=== PATIENT | male | born 1985 | race Caucasian/White ===

== ENCOUNTER 2016-10-04 01:32 | Emergency (ER) | payer OTHER, SELFPAY ==
--- NOTE | 2016-10-04 02:59 | EDDOCDS ---
Physician Documentation [facility] Name: Duncan Malhotra Age: 31 yrs Sex: Male : 1985 Arrival Date: 10/04/2016 Time: 01:32 Bed I4 / M4 Private MD: Disposition: 10/04/16 02:43 Discharged to Home/Self Care. Impression: Pain in right foot. - Condition is Stable. - Discharge Instructions: Musculoskeletal Pain. - Prescriptions for Naprosyn 500 mg Oral Tablet - take 1 tablet by ORAL route every 12 days As needed take with food; 30 tablet. - Medication Reconciliation, Local Pharmacy Hours form. - Follow up: Emergency Department; When: As needed; Reason: Worsening of conditions. Follow up: [facility]; When: Call to arrange an appointment; Reason: Recheck today's complaints, Continuance of care, To establish care. - Problem is new. - Symptoms are unchanged. - Notes: THERE WAS NO SIGN OF FRACTURE ON YOUR XRAY TODAY. PLEASE FOLLOW UP WITH YOUR PRIMARY CARE PROVIDER IN THE NEXT FEW DAYS TO RECHECK YOUR SYMPTOMS. ANY WORSENING SYMPTOMS, PLEASE RETURN TO THE ER. Historical: - Allergies: ceclor (Hives); - Home Meds: 1. none - PMHx: none; - PSHx: none; - Social history: Smoking status: Patient uses tobacco products, light tobacco smoker. No barriers to communication noted, The patient speaks fluent Romanian, Speaks appropriately for age. - Family history: Not pertinent. - : The pt / caregiver states he / she is not on anticoagulants. Home medication list is obtained from the patient. - Exposure Risk Screening:: None identified. Vital Signs: 10/04 01:43 BP 164 / 106; Pulse 96; Resp 18; Temp 99.8(TE); Pulse Ox 94% on R/A; Weight 108.86 kg / kmg1 240 lbs; Height 5 ft. 9 in. (175.26 cm) (R); Pain 8/10; 02:56 BP 146 / 88; Pulse 98; Resp 18; Temp 99.4(O); Pulse Ox 95% on R/A; Pain 0/10; jmb 01:43 Body Mass Index 35.44 (108.86 kg, 175.26 cm) kmg1 MDM: 02:03 Foot, Complete Ordered. EDMS 02:46 Financial registration complete. [facility] [address] Signatures: Dispatcher [employer] Gay Diaz, RN RN kmg1 Allen Garcia RN RN jmb Jenniffer Gunderson PA-C PA-C dt4 Yola Campos [facility] [address] MTDD
--- NOTE | 2016-10-04 02:59 | EDDOCDS ---
Nurse's Notes [facility] Name: Duncan Malhotra Age: 31 yrs Sex: Male : 1985 Arrival Date: 10/04/2016 Time: 01:32 Bed I4 / M4 Private MD: Diagnosis: Pain in right foot Presentation: 10/04 01:42 Presenting complaint: Patient states: Pain top of right foot for 3 weeks. km Suicide/Homicide risk assessment- the patient denies having any suicidal and/or homicidal ideations and does not present with any other emotional, behavioral or mental health complaints. 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 Transition of care: patient was not received from another setting of care. 01:42 Acuity: KEZIA Level 4 [facility] [place] [place] 01:42 Method Of Arrival: Walkin/Carried/Asstd [facility] [place] [place] 02:58 Adult Sepsis Screening: The patient does not have new or worsening altered mentation. jmb Patient's respiratory rate is less than 22. Systolic blood pressure is greater than 100. Patient has a qSOFA score of 0- Negative Sepsis Screen. Triage Assessment: 01:43 General: Appears in no apparent distress, comfortable, Behavior is appropriate for age, kmg1 cooperative, pleasant. Pain: Location: lateral aspect of right foot and dorsum of right foot Pain currently is 7 out of 10 on a pain scale. Alleviated by nothing. Aggravated by weight bearing. HIV screening NA for this visit Offered previously. Musculoskeletal: Circulation, motion, and sensation intact Capillary refill < 3 seconds Reports pain in lateral side of right foot and dorsum of right foot. Historical: - Allergies: ceclor (Hives); - Home Meds: 1. none - PMHx: none; - PSHx: none; - Social history: Smoking status: Patient uses tobacco products, light tobacco smoker. No barriers to communication noted, The patient speaks fluent [place], Speaks appropriately for age. - Family history: Not pertinent. - : The pt / caregiver states he / she is not on anticoagulants. Home medication list is obtained from the patient. - Exposure Risk Screening:: None identified. Screenin:34 Screening information is obtained from the patient. Fall risk: No risks identified. jmb Assistance ADL's: requires no assistance with activities of daily living. Abuse/DV Screen: The patient / caregiver reports he/she is: in a living situation that causes fear, pain or injury. Nutritional screening: No deficits noted. Advance Directives: Currently, there is no health care proxy. There is no active DNR order. There is no living will. There is no Power of Cigarette Tipper. home support is adequate. Assessment: 02:34 General: Appears in no apparent distress, comfortable, Behavior is appropriate for age, jmb cooperative. Neurological: Level of Consciousness is awake, alert, obeys commands, Oriented to person, place, time, Speech is normal, Facial symmetry appears normal, Facial symmetry: tongue is midline. Cardiovascular: Capillary refill < 3 seconds Heart tones present Pulses are all present. Rhythm is regular. Respiratory: Airway is patent Respiratory effort is even, unlabored, Respiratory pattern is regular, symmetrical, Breath sounds are clear bilaterally. GI: Abdomen is non- distended Bowel sounds present X 4 quads. Abd is soft and non tender X 4 quads. Derm: Skin is pink, warm & dry. Musculoskeletal: Range of motion intact in all extremities. 02:56 General: Patient instructed on discharged instructions. Patient asked if there were any [place] questions regarding discharge, patient stated no. Patient signed discharge instructions. Patient discharged in stable condition. . Vital Signs: 01:43 BP 164 / 106; Pulse 96; Resp 18; Temp 99.8(TE); Pulse Ox 94% on R/A; Weight 108.86 kg; [facility] [place] [place] Height 5 ft. 9 in. (175.26 cm) (R); Pain 8/10; 02:56 BP 146 / 88; Pulse 98; Resp 18; Temp 99.4(O); Pulse Ox 95% on R/A; Pain 0/10; jmb 01:43 Body Mass Index 35.44 (108.86 kg, 175.26 cm) [facility] [place] [place] Vitals: 01:43 Log In Time: October 04, 2016 at 01:34. [facility] [place] [place] ED Course: 01:33 Patient visited by Hazel Mejía, Reg. hs2 01:33 Patient moved to Waiting hs2 01:43 Triage Initiated [facility] [place] [place] 01:50 Patient moved to MTA Wait km 02:05 Patient moved to I4 / M4 jmb 02:08 Patient visited by Jolene Zhu LPN. cp1 02:30 Jenniffer Gunderson PA-C is PHCP. dt4 02:30 Anibal Esteban DO is Attending Physician. dt4 02:30 Patient visited by Jenniffer Gunderson PA-C. dt4 02:34 The patient / caregiver is instructed regarding the plan of care and ED course. jmb 02:34 No IV's were initiated during this patient's visit. No procedures done that require jmb assistance. 02:35 Patient visited by Allen Garcia RN. jmb 02:42 [facility] is Referral Physician. dt4 Order Results: There are currently no results for this order. Outcome: 02:43 Discharge ordered by Provider. dt4 02:56 Discharge Assessment: Patient awake, alert and oriented x 3. No cognitive and/or jmb functional deficits noted. Patient verbalized understanding of disposition instructions. Patient awake and alert. obeys commands, Oriented to person, place and time. Patient verbalized understanding of disposition instructions. Patient has no functional deficits. patient administered narcotics - no. The following High Risk Discharge criteria are identified: None. Discharged to home ambulatory, with significant other. Condition: stable. Discharge instructions given to patient, Instructed on discharge instructions, follow up and referral plans. medication usage, Demonstrated understanding of instructions, medications, Pt was receptive of discharge instructions/ teaching. Prescriptions given X 1. No special radiology studies were completed. Property sent home with patient. 02:58 Patient left the ED. neida Signatures: Gay Ramirez, RN RN kmg1 Jolene Zhu LPN LPN cp1 Allen Garcia RN RN jmb Tschudi, Diane, PA-C PA-C dt4 Hazel Mejía, Reg Reg hs2 MTDD
--- NOTE | 2016-10-04 11:14 | REP ---
Right foot series: Four views. History: Right foot pain. No known injury. Findings: There is flattening, irregularity and some sclerosis in the distal end of the 3rd metatarsal consistent with Freiberg infraction. Overall mineralization pattern is normal. There is an accessory navicular ossicle. No other abnormality. 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 Os naviculare noted incidentally. Signed by Juan Daniel García MD 10/04/2016 01:13 P
--- NOTE | 2016-10-06 03:59 | EDDOCDS ---
Physician Documentation [facility] Name: Duncan Malhotra Age: 31 yrs Sex: Male : 1985 Arrival Date: 10/04/2016 Time: 01:32 Bed I4 / M4 Private MD: Disposition: 10/04/16 02:43 Discharged to Home/Self Care. Impression: Pain in right foot. - Condition is Stable. - Discharge Instructions: Musculoskeletal Pain. - Prescriptions for Naprosyn 500 mg Oral Tablet - take 1 tablet by ORAL route every 12 days As needed take with food; 30 tablet. - Medication Reconciliation, Local Pharmacy Hours form. - Follow up: Emergency Department; When: As needed; Reason: Worsening of conditions. Follow up: [facility]; When: Call to arrange an appointment; Reason: Recheck today's complaints, Continuance of care, To establish care. - Problem is new. - Symptoms are unchanged. - Notes: THERE WAS NO SIGN OF FRACTURE ON YOUR XRAY TODAY. PLEASE FOLLOW UP WITH YOUR PRIMARY CARE PROVIDER IN THE NEXT FEW DAYS TO RECHECK YOUR SYMPTOMS. ANY WORSENING SYMPTOMS, PLEASE RETURN TO THE ER. Historical: - Allergies: ceclor (Hives); - Home Meds: 1. none - PMHx: none; - PSHx: none; - Social history: Smoking status: Patient uses tobacco products, light tobacco smoker. No barriers to communication noted, The patient speaks fluent Malagasy, Speaks appropriately for age. - Family history: Not pertinent. - : The pt / caregiver states he / she is not on anticoagulants. Home medication list is obtained from the patient. - Exposure Risk Screening:: None identified. Vital Signs: 10/04 01:43 BP 164 / 106; Pulse 96; Resp 18; Temp 99.8(TE); Pulse Ox 94% on R/A; Weight 108.86 kg / kmg1 240 lbs; Height 5 ft. 9 in. (175.26 cm) (R); Pain 8/10; 02:56 BP 146 / 88; Pulse 98; Resp 18; Temp 99.4(O); Pulse Ox 95% on R/A; Pain 0/10; jmb 01:43 Body Mass Index 35.44 (108.86 kg, 175.26 cm) kmg1 MDM: 02:03 Foot, Complete Ordered. EDMS 02:46 Financial registration complete. [facility] 04:10 [facility] Payment Agreement was scanned into [employer] and attached to record. [facility] 14:21 T-Sheet-- Draft Copy was scanned into [employer] and attached to record. gb Signatures: Dispatcher [employer] EDMS Gay Ramirez, RN RN kmg1 Nora Nicolas, Reg Reg gb Allen Garcia RN RN jmb Tschudi, Diane, TIGRE PAYola Cotton [facility] The chart was reviewed and I authenticate all verbal orders and agree with the evaluation and treatment provided.Attachments: 04:10 [facility] Payment Agreement [facility] 14:21 T-Sheet-- Draft Copy gb Chart Complete MTDD
--- NOTE | 2016-10-06 03:59 | EDDOCDS ---
Nurse's Notes [facility] Name: Duncan Malhotra Age: 31 yrs Sex: Male : 1985 Arrival Date: 10/04/2016 Time: 01:32 Bed I4 / M4 Private MD: Diagnosis: Pain in right foot Presentation: 10/04 01:42 Presenting complaint: Patient states: Pain top of right foot for 3 weeks. km Suicide/Homicide risk assessment- the patient denies having any suicidal and/or homicidal ideations and does not present with any other emotional, behavioral or mental health complaints. 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 Transition of care: patient was not received from another setting of care. 01:42 Acuity: KEZIA Level 4 [facility] [place] 01:42 Method Of Arrival: Walkin/Carried/Asstd [facility] [place] 02:58 Adult Sepsis Screening: The patient does not have new or worsening altered mentation. jmb Patient's respiratory rate is less than 22. Systolic blood pressure is greater than 100. Patient has a qSOFA score of 0- Negative Sepsis Screen. Triage Assessment: 01:43 General: Appears in no apparent distress, comfortable, Behavior is appropriate for age, kmg1 cooperative, pleasant. Pain: Location: lateral aspect of right foot and dorsum of right foot Pain currently is 7 out of 10 on a pain scale. Alleviated by nothing. Aggravated by weight bearing. HIV screening NA for this visit Offered previously. Musculoskeletal: Circulation, motion, and sensation intact Capillary refill < 3 seconds Reports pain in lateral side of right foot and dorsum of right foot. Historical: - Allergies: ceclor (Hives); - Home Meds: 1. none - PMHx: none; - PSHx: none; - Social history: Smoking status: Patient uses tobacco products, light tobacco smoker. No barriers to communication noted, The patient speaks fluent Estonian, Speaks appropriately for age. - Family history: Not pertinent. - : The pt / caregiver states he / she is not on anticoagulants. Home medication list is obtained from the patient. - Exposure Risk Screening:: None identified. Screenin:34 Screening information is obtained from the patient. Fall risk: No risks identified. jmb Assistance ADL's: requires no assistance with activities of daily living. Abuse/DV Screen: The patient / caregiver reports he/she is: in a living situation that causes fear, pain or injury. Nutritional screening: No deficits noted. Advance Directives: Currently, there is no health care proxy. There is no active DNR order. There is no living will. There is no Power of Casualty Insurance Claim Adjuster. home support is adequate. Assessment: 02:34 General: Appears in no apparent distress, comfortable, Behavior is appropriate for age, jmb cooperative. Neurological: Level of Consciousness is awake, alert, obeys commands, Oriented to person, place, time, Speech is normal, Facial symmetry appears normal, Facial symmetry: tongue is midline. Cardiovascular: Capillary refill < 3 seconds Heart tones present Pulses are all present. Rhythm is regular. Respiratory: Airway is patent Respiratory effort is even, unlabored, Respiratory pattern is regular, symmetrical, Breath sounds are clear bilaterally. GI: Abdomen is non- distended Bowel sounds present X 4 quads. Abd is soft and non tender X 4 quads. Derm: Skin is pink, warm & dry. Musculoskeletal: Range of motion intact in all extremities. 02:56 General: Patient instructed on discharged instructions. Patient asked if there were any [facility] questions regarding discharge, patient stated no. Patient signed discharge instructions. Patient discharged in stable condition. . Vital Signs: 01:43 BP 164 / 106; Pulse 96; Resp 18; Temp 99.8(TE); Pulse Ox 94% on R/A; Weight 108.86 kg; [facility] [place] Height 5 ft. 9 in. (175.26 cm) (R); Pain 8/10; 02:56 BP 146 / 88; Pulse 98; Resp 18; Temp 99.4(O); Pulse Ox 95% on R/A; Pain 0/10; jmb 01:43 Body Mass Index 35.44 (108.86 kg, 175.26 cm) [facility] [place] Vitals: 01:43 Log In Time: October 04, 2016 at 01:34. [facility] [place] ED Course: 01:33 Patient visited by Hazel Mejía, Reg. hs2 01:33 Patient moved to Waiting hs2 01:43 Triage Initiated [facility] [place] 01:50 Patient moved to MTA Wait km 02:05 Patient moved to I4 / M4 jmb 02:08 Patient visited by Jolene Zhu LPN. cp1 02:30 Jenniffer Gunderson PA-C is PHCP. dt4 02:30 Anibal Esteban DO is Attending Physician. dt4 02:30 Patient visited by Jenniffer Gunderson PA-C. dt4 02:34 The patient / caregiver is instructed regarding the plan of care and ED course. jmb 02:34 No IV's were initiated during this patient's visit. No procedures done that require jmb assistance. 02:35 Patient visited by Allen Garcia RN. jmb 02:42 [facility] is Referral Physician. dt4 04:10 [facility] Payment Agreement was scanned into [employer] and attached to record. [facility] 11:34 Foot, Complete Returned. [facility] 14:21 T-Sheet-- Draft Copy was scanned into [employer] and attached to record. gb Order Results: Radiology Order: Foot, Complete Test: Foot, Complete REASON FOR EXAMINATION: right foot pain, no known injury; Right foot series: Four views.; ; History: Right foot pain. No known injury.; ; Findings: There is flattening, irregularity and some sclerosis in the distal end; of the 3rd metatarsal consistent with Freiberg infraction. Overall; mineralization pattern is normal. There is an accessory navicular ossicle. No; other abnormality.; ; Impression:; ; Findings consistent with Freiberg infraction affecting the distal end of the 3rd; metatarsal. Os naviculare noted incidentally.; ; ; Signed by; Juan Daniel García MD 10/04/2016 01:13 P; Outcome: 02:43 Discharge ordered by Provider. dt4 02:56 Discharge Assessment: Patient awake, alert and oriented x 3. No cognitive and/or jmb functional deficits noted. Patient verbalized understanding of disposition instructions. Patient awake and alert. obeys commands, Oriented to person, place and time. Patient verbalized understanding of disposition instructions. Patient has no functional deficits. patient administered narcotics - no. The following High Risk Discharge criteria are identified: None. Discharged to home ambulatory, with significant other. Condition: stable. Discharge instructions given to patient, Instructed on discharge instructions, follow up and referral plans. medication usage, Demonstrated understanding of instructions, medications, Pt was receptive of discharge instructions/ teaching. Prescriptions given X 1. No special radiology studies were completed. Property sent home with patient. 02:58 Patient left the ED. sumanthb Signatures: Dispatcher [facility] Gay Ramirez RN RN km Nora Nicolas, Reg Reg gb Marko,Jolene,ELECTRONICS PARTS SALES REPRESENTATIVE ELECTRONICS PARTS SALES REPRESENTATIVE cp1 Allen Garcia,RN RN jmb Jenniffer Gunderson, TIGRE PASj dt4 Yola Campos Hillary, Reg Reg hs2 Chart Complete MTDD
--- NOTE | 2016-10-06 03:59 | EDDOCDS ---
Physician Documentation [facility] Name: Duncan Malhotra Age: 31 yrs Sex: Male : 1985 Arrival Date: 10/04/2016 Time: 01:32 Bed I4 / M4 Private MD: Disposition: 10/04/16 02:43 Discharged to Home/Self Care. Impression: Pain in right foot. - Condition is Stable. - Discharge Instructions: Musculoskeletal Pain. - Prescriptions for Naprosyn 500 mg Oral Tablet - take 1 tablet by ORAL route every 12 days As needed take with food; 30 tablet. - Medication Reconciliation, Local Pharmacy Hours form. - Follow up: Emergency Department; When: As needed; Reason: Worsening of conditions. Follow up: [facility]; When: Call to arrange an appointment; Reason: Recheck today's complaints, Continuance of care, To establish care. - Problem is new. - Symptoms are unchanged. - Notes: THERE WAS NO SIGN OF FRACTURE ON YOUR XRAY TODAY. PLEASE FOLLOW UP WITH YOUR PRIMARY CARE PROVIDER IN THE NEXT FEW DAYS TO RECHECK YOUR SYMPTOMS. ANY WORSENING SYMPTOMS, PLEASE RETURN TO THE ER. Historical: - Allergies: ceclor (Hives); - Home Meds: 1. none - PMHx: none; - PSHx: none; - Social history: Smoking status: Patient uses tobacco products, light tobacco smoker. No barriers to communication noted, The patient speaks fluent Mosotho, Speaks appropriately for age. - Family history: Not pertinent. - : The pt / caregiver states he / she is not on anticoagulants. Home medication list is obtained from the patient. - Exposure Risk Screening:: None identified. Vital Signs: 10/04 01:43 BP 164 / 106; Pulse 96; Resp 18; Temp 99.8(TE); Pulse Ox 94% on R/A; Weight 108.86 kg / kmg1 240 lbs; Height 5 ft. 9 in. (175.26 cm) (R); Pain 8/10; 02:56 BP 146 / 88; Pulse 98; Resp 18; Temp 99.4(O); Pulse Ox 95% on R/A; Pain 0/10; jmb 01:43 Body Mass Index 35.44 (108.86 kg, 175.26 cm) kmg1 MDM: 02:03 Foot, Complete Ordered. EDMS 02:46 Financial registration complete. [facility] 04:10 [facility] Payment Agreement was scanned into [employer] and attached to record. [facility] 14:21 T-Sheet-- Draft Copy was scanned into [employer] and attached to record. gb Signatures: Dispatcher [employer] EDMS Gay Ramirez, RN RN kmg1 Nora Nicolas, Reg Reg gb Allen Garcia RN RN jmb Tschudi, Diane, TIGRE PAYoal Cotton [facility] The chart was reviewed and I authenticate all verbal orders and agree with the evaluation and treatment provided.Attachments: 04:10 [facility] Payment Agreement [facility] 14:21 T-Sheet-- Draft Copy gb Chart Complete MTDD
--- NOTE | 2016-10-07 20:32 | EDDOCDS ---
Physician Documentation [facility] Name: Duncan Malhotra Age: 31 yrs Sex: Male : 1985 Arrival Date: 10/04/2016 Time: 01:32 Bed I4 / M4 Private MD: Disposition: 10/04/16 02:43 Discharged to Home/Self Care. Impression: Pain in right foot. - Condition is Stable. - Discharge Instructions: Musculoskeletal Pain. - Prescriptions for Naprosyn 500 mg Oral Tablet - take 1 tablet by ORAL route every 12 days As needed take with food; 30 tablet. - Medication Reconciliation, Local Pharmacy Hours form. - Follow up: Emergency Department; When: As needed; Reason: Worsening of conditions. Follow up: [facility]; When: Call to arrange an appointment; Reason: Recheck today's complaints, Continuance of care, To establish care. - Problem is new. - Symptoms are unchanged. - Notes: THERE WAS NO SIGN OF FRACTURE ON YOUR XRAY TODAY. PLEASE FOLLOW UP WITH YOUR PRIMARY CARE PROVIDER IN THE NEXT FEW DAYS TO RECHECK YOUR SYMPTOMS. ANY WORSENING SYMPTOMS, PLEASE RETURN TO THE ER. Historical: - Allergies: ceclor (Hives); - Home Meds: 1. none - PMHx: none; - PSHx: none; - Social history: Smoking status: Patient uses tobacco products, light tobacco smoker. No barriers to communication noted, The patient speaks fluent Chilean, Speaks appropriately for age. - Family history: Not pertinent. - : The pt / caregiver states he / she is not on anticoagulants. Home medication list is obtained from the patient. - Exposure Risk Screening:: None identified. Vital Signs: 10/04 01:43 BP 164 / 106; Pulse 96; Resp 18; Temp 99.8(TE); Pulse Ox 94% on R/A; Weight 108.86 kg / kmg1 240 lbs; Height 5 ft. 9 in. (175.26 cm) (R); Pain 8/10; 02:56 BP 146 / 88; Pulse 98; Resp 18; Temp 99.4(O); Pulse Ox 95% on R/A; Pain 0/10; jmb 01:43 Body Mass Index 35.44 (108.86 kg, 175.26 cm) kmg1 MDM: 02:03 Foot, Complete Ordered. EDMS 02:46 Financial registration complete. [facility] 04:10 [facility] Payment Agreement was scanned into [employer] and attached to record. [facility] 14:21 T-Sheet-- Draft Copy was scanned into [employer] and attached to record. chandni Addendum: 10/07/2016 20:28 Radiology Callback: Radiology results faxed to primary care physician/provider. [facility] faxed formal report of right foot film for fu mlg. Signatures: Dispatcher [facility] Tatyana Millan MD MD ml Gay Ramirez, RN RN kmg1 Nora Nicolas, Reg Reg gb Allen GarciaRN RN Jenniffer Sanabria PA-C PAYola Cotton [facility] The chart was reviewed and I authenticate all verbal orders and agree with the evaluation and treatment provided.Attachments: 10/04 04:10 [facility] Payment Agreement [facility] 14:21 T-Sheet-- Draft Copy MTDD
--- NOTE | 2016-10-07 20:32 | EDDOCDS ---
Nurse's Notes [facility] Name: Duncan Malhotra Age: 31 yrs Sex: Male : 1985 Arrival Date: 10/04/2016 Time: 01:32 Bed I4 / M4 Private MD: Diagnosis: Pain in right foot Presentation: 10/04 01:42 Presenting complaint: Patient states: Pain top of right foot for 3 weeks. km Suicide/Homicide risk assessment- the patient denies having any suicidal and/or homicidal ideations and does not present with any other emotional, behavioral or mental health complaints. 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 Transition of care: patient was not received from another setting of care. 01:42 Acuity: KEZIA Level [address] [facility] 01:42 Method Of Arrival: Walkin/Carried/Asstd [facility] 02:58 Adult Sepsis Screening: The patient does not have new or worsening altered mentation. jmb Patient's respiratory rate is less than 22. Systolic blood pressure is greater than 100. Patient has a qSOFA score of 0- Negative Sepsis Screen. Triage Assessment: 01:43 General: Appears in no apparent distress, comfortable, Behavior is appropriate for age, kmg1 cooperative, pleasant. Pain: Location: lateral aspect of right foot and dorsum of right foot Pain currently is 7 out of 10 on a pain scale. Alleviated by nothing. Aggravated by weight bearing. HIV screening NA for this visit Offered previously. Musculoskeletal: Circulation, motion, and sensation intact Capillary refill < 3 seconds Reports pain in lateral side of right foot and dorsum of right foot. Historical: - Allergies: ceclor (Hives); - Home Meds: 1. none - PMHx: none; - PSHx: none; - Social history: Smoking status: Patient uses tobacco products, light tobacco smoker. No barriers to communication noted, The patient speaks fluent Syrian, Speaks appropriately for age. - Family history: Not pertinent. - : The pt / caregiver states he / she is not on anticoagulants. Home medication list is obtained from the patient. - Exposure Risk Screening:: None identified. Screenin:34 Screening information is obtained from the patient. Fall risk: No risks identified. jmb Assistance ADL's: requires no assistance with activities of daily living. Abuse/DV Screen: The patient / caregiver reports he/she is: in a living situation that causes fear, pain or injury. Nutritional screening: No deficits noted. Advance Directives: Currently, there is no health care proxy. There is no active DNR order. There is no living will. There is no Power of Superintendent [employer]. home support is adequate. Assessment: 02:34 General: Appears in no apparent distress, comfortable, Behavior is appropriate for age, jmb cooperative. Neurological: Level of Consciousness is awake, alert, obeys commands, Oriented to person, place, time, Speech is normal, Facial symmetry appears normal, Facial symmetry: tongue is midline. Cardiovascular: Capillary refill < 3 seconds Heart tones present Pulses are all present. Rhythm is regular. Respiratory: Airway is patent Respiratory effort is even, unlabored, Respiratory pattern is regular, symmetrical, Breath sounds are clear bilaterally. GI: Abdomen is non- distended Bowel sounds present X 4 quads. Abd is soft and non tender X 4 quads. Derm: Skin is pink, warm & dry. Musculoskeletal: Range of motion intact in all extremities. 02:56 General: Patient instructed on discharged instructions. Patient asked if there were any [facility] questions regarding discharge, patient stated no. Patient signed discharge instructions. Patient discharged in stable condition. . Vital Signs: 01:43 BP 164 / 106; Pulse 96; Resp 18; Temp 99.8(TE); Pulse Ox 94% on R/A; Weight 108.86 kg; [facility] Height 5 ft. 9 in. (175.26 cm) (R); Pain 8/10; 02:56 BP 146 / 88; Pulse 98; Resp 18; Temp 99.4(O); Pulse Ox 95% on R/A; Pain 0/10; jmb 01:43 Body Mass Index 35.44 (108.86 kg, 175.26 cm) [facility] Vitals: 01:43 Log In Time: October 04, 2016 at 01:[address]. [facility] ED Course: 01:33 Patient visited by Hazel Mejía, Reg. hs2 01:33 Patient moved to Waiting hs2 01:[address] [facility] 01:50 Patient moved to MTA Wait km 02:05 Patient moved to I4 / M4 jmb 02:08 Patient visited by Jolene Zhu LPN. cp1 02:30 Jenniffer Gunderson PA-C is PHCP. dt4 02:30 Anibal Esteban DO is Attending Physician. dt4 02:30 Patient visited by Jenniffer Gunderson PA-C. dt4 02:34 The patient / caregiver is instructed regarding the plan of care and ED course. jmb 02:34 No IV's were initiated during this patient's visit. No procedures done that require jmb assistance. 02:35 Patient visited by Allen Garcia RN. jmb 02:42 [facility] is Referral Physician. dt4 04:10 [facility] Payment Agreement was scanned into [employer] and attached to record. [facility] 11:34 Foot, Complete Returned. [facility] 14:21 T-Sheet-- Draft Copy was scanned into [employer] and attached to record. gb Order Results: Radiology Order: Foot, Complete Test: Foot, Complete REASON FOR EXAMINATION: right foot pain, no known injury; Right foot series: Four views.; ; History: Right foot pain. No known injury.; ; Findings: There is flattening, irregularity and some sclerosis in the distal end; of the 3rd metatarsal consistent with Freiberg infraction. Overall; mineralization pattern is normal. There is an accessory navicular ossicle. No; other abnormality.; ; Impression:; ; Findings consistent with Freiberg infraction affecting the distal end of the 3rd; metatarsal. Os naviculare noted incidentally.; ; ; Signed by; Juan Daniel García MD 10/04/2016 01:13 P; Outcome: 02:43 Discharge ordered by Provider. dt4 02:56 Discharge Assessment: Patient awake, alert and oriented x 3. No cognitive and/or jmb functional deficits noted. Patient verbalized understanding of disposition instructions. Patient awake and alert. obeys commands, Oriented to person, place and time. Patient verbalized understanding of disposition instructions. Patient has no functional deficits. patient administered narcotics - no. The following High Risk Discharge criteria are identified: None. Discharged to home ambulatory, with significant other. Condition: stable. Discharge instructions given to patient, Instructed on discharge instructions, follow up and referral plans. medication usage, Demonstrated understanding of instructions, medications, Pt was receptive of discharge instructions/ teaching. Prescriptions given X 1. No special radiology studies were completed. Property sent home with patient. 02:58 Patient left the ED. sumanthb Signatures: Dispatcher [facility] Gay Ramirez RN RN km Nora Nicolas, Reg Reg gb Marko,Jolene,EXPLOSIVE OPERATOR FUSE EXPLOSIVE OPERATOR FUSE cp1 Allen Garcia,RN RN sumanthb Jenniffer Gunderson, TIGRE PASj dt4 Yola Campos Hillary, Reg Reg hs2 MTDD
--- NOTE | 2016-10-07 20:32 | EDDOCDS ---
Physician Documentation [facility] Name: Duncan Malhotra Age: 31 yrs Sex: Male : 1985 Arrival Date: 10/04/2016 Time: 01:32 Bed I4 / M4 Private MD: Disposition: 10/04/16 02:43 Discharged to Home/Self Care. Impression: Pain in right foot. - Condition is Stable. - Discharge Instructions: Musculoskeletal Pain. - Prescriptions for Naprosyn 500 mg Oral Tablet - take 1 tablet by ORAL route every 12 days As needed take with food; 30 tablet. - Medication Reconciliation, Local Pharmacy Hours form. - Follow up: Emergency Department; When: As needed; Reason: Worsening of conditions. Follow up: [facility]; When: Call to arrange an appointment; Reason: Recheck today's complaints, Continuance of care, To establish care. - Problem is new. - Symptoms are unchanged. - Notes: THERE WAS NO SIGN OF FRACTURE ON YOUR XRAY TODAY. PLEASE FOLLOW UP WITH YOUR PRIMARY CARE PROVIDER IN THE NEXT FEW DAYS TO RECHECK YOUR SYMPTOMS. ANY WORSENING SYMPTOMS, PLEASE RETURN TO THE ER. Historical: - Allergies: ceclor (Hives); - Home Meds: 1. none - PMHx: none; - PSHx: none; - Social history: Smoking status: Patient uses tobacco products, light tobacco smoker. No barriers to communication noted, The patient speaks fluent Malaysian, Speaks appropriately for age. - Family history: Not pertinent. - : The pt / caregiver states he / she is not on anticoagulants. Home medication list is obtained from the patient. - Exposure Risk Screening:: None identified. Vital Signs: 10/04 01:43 BP 164 / 106; Pulse 96; Resp 18; Temp 99.8(TE); Pulse Ox 94% on R/A; Weight 108.86 kg / kmg1 240 lbs; Height 5 ft. 9 in. (175.26 cm) (R); Pain 8/10; 02:56 BP 146 / 88; Pulse 98; Resp 18; Temp 99.4(O); Pulse Ox 95% on R/A; Pain 0/10; jmb 01:43 Body Mass Index 35.44 (108.86 kg, 175.26 cm) kmg1 MDM: 02:03 Foot, Complete Ordered. EDMS 02:46 Financial registration complete. [facility] 04:10 [facility] Payment Agreement was scanned into [employer] and attached to record. [facility] 14:21 T-Sheet-- Draft Copy was scanned into [employer] and attached to record. chandni Addendum: 10/07/2016 20:28 Radiology Callback: Radiology results faxed to primary care physician/provider. [facility] faxed formal report of right foot film for fu mlg. Signatures: Dispatcher [facility] ED[facility] Tatyana Millan MD MD ml Gay Ramirez, RN RN kmg1 Nora Nicolas, Reg Reg gb Allen GarciaRN RN Jenniffer Sanabria PA-C PAYola Cotton [facility] The chart was reviewed and I authenticate all verbal orders and agree with the evaluation and treatment provided.Attachments: 10/04 04:10 [facility] Payment Agreement [facility] 14:21 T-Sheet-- Draft Copy MTDD
--- NOTE | 2016-10-07 20:33 | EDDOCDS ---
Nurse's Notes [facility] Name: Duncan Malhotra Age: 31 yrs Sex: Male : 1985 Arrival Date: 10/04/2016 Time: 01:32 Bed I4 / M4 Private MD: Diagnosis: Pain in right foot Presentation: 10/04 01:42 Presenting complaint: Patient states: Pain top of right foot for 3 weeks. km Suicide/Homicide risk assessment- the patient denies having any suicidal and/or homicidal ideations and does not present with any other emotional, behavioral or mental health complaints. Status: Patient is not a client services account manager or dependent. Transition of care: patient was not received from another setting of care. 01:42 Acuity: KEZIA Level 4 [facility] 01:42 Method Of Arrival: Walkin/Carried/Asstd [facility] 02:58 Adult Sepsis Screening: The patient does not have new or worsening altered mentation. jmb Patient's respiratory rate is less than 22. Systolic blood pressure is greater than 100. Patient has a qSOFA score of 0- Negative Sepsis Screen. Triage Assessment: 01:43 General: Appears in no apparent distress, comfortable, Behavior is appropriate for age, kmg1 cooperative, pleasant. Pain: Location: lateral aspect of right foot and dorsum of right foot Pain currently is 7 out of 10 on a pain scale. Alleviated by nothing. Aggravated by weight bearing. HIV screening NA for this visit Offered previously. Musculoskeletal: Circulation, motion, and sensation intact Capillary refill < 3 seconds Reports pain in lateral side of right foot and dorsum of right foot. Historical: - Allergies: ceclor (Hives); - Home Meds: 1. none - PMHx: none; - PSHx: none; - Social history: Smoking status: Patient uses tobacco products, light tobacco smoker. No barriers to communication noted, The patient speaks fluent Central African, Speaks appropriately for age. - Family history: Not pertinent. - : The pt / caregiver states he / she is not on anticoagulants. Home medication list is obtained from the patient. - Exposure Risk Screening:: None identified. Screenin:34 Screening information is obtained from the patient. Fall risk: No risks identified. jmb Assistance ADL's: requires no assistance with activities of daily living. Abuse/DV Screen: The patient / caregiver reports he/she is: in a living situation that causes fear, pain or injury. Nutritional screening: No deficits noted. Advance Directives: Currently, there is no health care proxy. There is no active DNR order. There is no living will. There is no Power of Registered Respiratory Technician. home support is adequate. Assessment: 02:34 General: Appears in no apparent distress, comfortable, Behavior is appropriate for age, jmb cooperative. Neurological: Level of Consciousness is awake, alert, obeys commands, Oriented to person, place, time, Speech is normal, Facial symmetry appears normal, Facial symmetry: tongue is midline. Cardiovascular: Capillary refill < 3 seconds Heart tones present Pulses are all present. Rhythm is regular. Respiratory: Airway is patent Respiratory effort is even, unlabored, Respiratory pattern is regular, symmetrical, Breath sounds are clear bilaterally. GI: Abdomen is non- distended Bowel sounds present X 4 quads. Abd is soft and non tender X 4 quads. Derm: Skin is pink, warm & dry. Musculoskeletal: Range of motion intact in all extremities. 02:56 General: Patient instructed on discharged instructions. Patient asked if there were any [facility] questions regarding discharge, patient stated no. Patient signed discharge instructions. Patient discharged in stable condition. . Vital Signs: 01:43 BP 164 / 106; Pulse 96; Resp 18; Temp 99.8(TE); Pulse Ox 94% on R/A; Weight 108.86 kg; [facility] Height 5 ft. 9 in. (175.26 cm) (R); Pain 8/10; 02:56 BP 146 / 88; Pulse 98; Resp 18; Temp 99.4(O); Pulse Ox 95% on R/A; Pain 0/10; jmb 01:43 Body Mass Index 35.44 (108.86 kg, 175.26 cm) [facility] Vitals: 01:43 Log In Time: October 04, 2016 at 01:34. [facility] ED Course: 01:33 Patient visited by Hazel Mejía, Reg. hs2 01:33 Patient moved to Waiting hs2 01:43 Triage Initiated [facility] 01:50 Patient moved to MTA Wait km 02:05 Patient moved to I4 / M4 jmb 02:08 Patient visited by Jolene Zhu LPN. cp1 02:30 Jenniffer Gunderson PA-C is PHCP. dt4 02:30 Anibal Esteban DO is Attending Physician. dt4 02:30 Patient visited by Jenniffer Gunderson PA-C. dt4 02:34 The patient / caregiver is instructed regarding the plan of care and ED course. jmb 02:34 No IV's were initiated during this patient's visit. No procedures done that require jmb assistance. 02:35 Patient visited by Allen Garcia RN. jmb 02:42 [facility] is Referral Physician. dt4 04:10 [facility] Payment Agreement was scanned into [employer] and attached to record. [facility] 11:34 Foot, Complete Returned. [facility] 14:21 T-Sheet-- Draft Copy was scanned into [employer] and attached to record. gb Order Results: Radiology Order: Foot, Complete Test: Foot, Complete REASON FOR EXAMINATION: right foot pain, no known injury; Right foot series: Four views.; ; History: Right foot pain. No known injury.; ; Findings: There is flattening, irregularity and some sclerosis in the distal end; of the 3rd metatarsal consistent with Freiberg infraction. Overall; mineralization pattern is normal. There is an accessory navicular ossicle. No; other abnormality.; ; Impression:; ; Findings consistent with Freiberg infraction affecting the distal end of the 3rd; metatarsal. Os naviculare noted incidentally.; ; ; Signed by; Juan Daniel García MD 10/04/2016 01:13 P; Outcome: 02:43 Discharge ordered by Provider. dt4 02:56 Discharge Assessment: Patient awake, alert and oriented x 3. No cognitive and/or jmb functional deficits noted. Patient verbalized understanding of disposition instructions. Patient awake and alert. obeys commands, Oriented to person, place and time. Patient verbalized understanding of disposition instructions. Patient has no functional deficits. patient administered narcotics - no. The following High Risk Discharge criteria are identified: None. Discharged to home ambulatory, with significant other. Condition: stable. Discharge instructions given to patient, Instructed on discharge instructions, follow up and referral plans. medication usage, Demonstrated understanding of instructions, medications, Pt was receptive of discharge instructions/ teaching. Prescriptions given X 1. No special radiology studies were completed. Property sent home with patient. 02:58 Patient left the ED. sumanthb Signatures: Dispatcher [facility] Gay Ramirez RN RN km Nora Nicolas, Reg Reg gb Marko,Jolene,QUARTER INSPECTOR QUARTER INSPECTOR cp1 Allen Garcia,RN RN jmb Jenniffer Gunderson, TIGRE PASj dt4 Yola Campos Hillary, Reg Reg hs2 Chart Complete MTDD
--- NOTE | 2016-10-07 20:33 | EDDOCDS ---
Physician Documentation [facility] Name: Duncan Malhotra Age: 31 yrs Sex: Male : 1985 Arrival Date: 10/04/2016 Time: 01:32 Bed I4 / M4 Private MD: Disposition: 10/04/16 02:43 Discharged to Home/Self Care. Impression: Pain in right foot. - Condition is Stable. - Discharge Instructions: Musculoskeletal Pain. - Prescriptions for Naprosyn 500 mg Oral Tablet - take 1 tablet by ORAL route every 12 days As needed take with food; 30 tablet. - Medication Reconciliation, Local Pharmacy Hours form. - Follow up: Emergency Department; When: As needed; Reason: Worsening of conditions. Follow up: [facility]; When: Call to arrange an appointment; Reason: Recheck today's complaints, Continuance of care, To establish care. - Problem is new. - Symptoms are unchanged. - Notes: THERE WAS NO SIGN OF FRACTURE ON YOUR XRAY TODAY. PLEASE FOLLOW UP WITH YOUR PRIMARY CARE PROVIDER IN THE NEXT FEW DAYS TO RECHECK YOUR SYMPTOMS. ANY WORSENING SYMPTOMS, PLEASE RETURN TO THE ER. Historical: - Allergies: ceclor (Hives); - Home Meds: 1. none - PMHx: none; - PSHx: none; - Social history: Smoking status: Patient uses tobacco products, light tobacco smoker. No barriers to communication noted, The patient speaks fluent Iranian, Speaks appropriately for age. - Family history: Not pertinent. - : The pt / caregiver states he / she is not on anticoagulants. Home medication list is obtained from the patient. - Exposure Risk Screening:: None identified. Vital Signs: 10/04 01:43 BP 164 / 106; Pulse 96; Resp 18; Temp 99.8(TE); Pulse Ox 94% on R/A; Weight 108.86 kg / kmg1 240 lbs; Height 5 ft. 9 in. (175.26 cm) (R); Pain 8/10; 02:56 BP 146 / 88; Pulse 98; Resp 18; Temp 99.4(O); Pulse Ox 95% on R/A; Pain 0/10; jmb 01:43 Body Mass Index 35.44 (108.86 kg, 175.26 cm) kmg1 MDM: 02:03 Foot, Complete Ordered. EDMS 02:46 Financial registration complete. [facility] 04:10 [facility] Payment Agreement was scanned into [employer] and attached to record. [facility] 14:21 T-Sheet-- Draft Copy was scanned into [employer] and attached to record. chandni Addendum: 10/07/2016 20:28 Radiology Callback: Radiology results faxed to primary care physician/provider. [facility] faxed formal report of right foot film for fu mlg. Signatures: Dispatcher [employer] EDOR Tatyana Millan MD MD ml Gay Ramirez, RN RN kmg1 Nora Nicolas, Reg Reg gb Allen GarciaRN RN Jenniffer Sanabria, TIGRE PAYola Cotton [facility] The chart was reviewed and I authenticate all verbal orders and agree with the evaluation and treatment provided.Attachments: 10/04 04:10 [facility] Payment Agreement [facility] 14:21 T-Sheet-- Draft Copy Chart Complete MTDD
--- NOTE | 2016-10-07 20:33 | EDDOCDS ---
Physician Documentation [facility] Name: Duncan Malhotra Age: 31 yrs Sex: Male : 1985 Arrival Date: 10/04/2016 Time: 01:32 Bed I4 / M4 Private MD: Disposition: 10/04/16 02:43 Discharged to Home/Self Care. Impression: Pain in right foot. - Condition is Stable. - Discharge Instructions: Musculoskeletal Pain. - Prescriptions for Naprosyn 500 mg Oral Tablet - take 1 tablet by ORAL route every 12 days As needed take with food; 30 tablet. - Medication Reconciliation, Local Pharmacy Hours form. - Follow up: Emergency Department; When: As needed; Reason: Worsening of conditions. Follow up: [facility]; When: Call to arrange an appointment; Reason: Recheck today's complaints, Continuance of care, To establish care. - Problem is new. - Symptoms are unchanged. - Notes: THERE WAS NO SIGN OF FRACTURE ON YOUR XRAY TODAY. PLEASE FOLLOW UP WITH YOUR PRIMARY CARE PROVIDER IN THE NEXT FEW DAYS TO RECHECK YOUR SYMPTOMS. ANY WORSENING SYMPTOMS, PLEASE RETURN TO THE ER. Historical: - Allergies: ceclor (Hives); - Home Meds: 1. none - PMHx: none; - PSHx: none; - Social history: Smoking status: Patient uses tobacco products, light tobacco smoker. No barriers to communication noted, The patient speaks fluent Martiniquais, Speaks appropriately for age. - Family history: Not pertinent. - : The pt / caregiver states he / she is not on anticoagulants. Home medication list is obtained from the patient. - Exposure Risk Screening:: None identified. Vital Signs: 10/04 01:43 BP 164 / 106; Pulse 96; Resp 18; Temp 99.8(TE); Pulse Ox 94% on R/A; Weight 108.86 kg / kmg1 240 lbs; Height 5 ft. 9 in. (175.26 cm) (R); Pain 8/10; 02:56 BP 146 / 88; Pulse 98; Resp 18; Temp 99.4(O); Pulse Ox 95% on R/A; Pain 0/10; jmb 01:43 Body Mass Index 35.44 (108.86 kg, 175.26 cm) kmg1 MDM: 02:03 Foot, Complete Ordered. EDMS 02:46 Financial registration complete. [facility] 04:10 [facility] Payment Agreement was scanned into [employer] and attached to record. [facility] 14:21 T-Sheet-- Draft Copy was scanned into [employer] and attached to record. chandni Addendum: 10/07/2016 20:28 Radiology Callback: Radiology results faxed to primary care physician/provider. [facility] faxed formal report of right foot film for fu mlg. Signatures: Dispatcher [employer] EDTX Tatyana Millan MD MD ml Gay Ramirez, RN RN kmg1 Nora Nicolas, Reg Reg gb Allen GarciaRN RN Jenniffer Sanabria, TIGRE PAYola Cotton [facility] The chart was reviewed and I authenticate all verbal orders and agree with the evaluation and treatment provided.Attachments: 10/04 04:10 [facility] Payment Agreement [facility] 14:21 T-Sheet-- Draft Copy Chart Complete MTDD
== END 2016-10-04 02:58 | disposition home or self-care (01) ==
LOC: M ED 01:32
DX: M79.671 Pain in right foot (principal); Z88.1 Allergy status to other antibiotic agents

== ENCOUNTER → 2020-09-10 | Outpatient (CLI) | payer MEDICAID ==
[2020-09-10 14:04] LABS: BASO # 0.1 10^3/uL (0.0-0.2); BASO % 0.9 % (0.0-1.0); EOS # 0.2 10^3/uL (0.0-0.5); EOS % 2.3 % (0.0-3.0); HEMATOCRIT 48.5 % (42.0-52.0); HEMOGLOBIN 15.8 g/dl (13.5-17.5); LYMPH # 2.6 10^3/uL (1.5-5.0); MEAN CORPUSCULAR HEMOGLOBIN 29.6 pg (27.0-33.0); MEAN CORPUSCULAR HGB CONC 32.6 g/dl (32.0-36.5); MEAN CORPUSCULAR VOLUME 90.8 fl (80.0-96.0); MONO # 0.8 10^3/uL (0.0-0.8); NEUTROPHILS # 5.6 10^3/uL (1.5-8.5); NEUTROPHILS % 60.2 % (36.0-66.0); PLATELET COUNT, AUTOMATED 218 10^3/uL (150-450); RED BLOOD COUNT 5.34 10^6/uL (4.30-6.10); WHITE BLOOD COUNT 9.3 10^3/uL (4.0-10.0)
[2020-09-10 14:36] LABS: BLOOD UREA NITROGEN 18 MG/DL (7-18); CALCIUM LEVEL 8.9 MG/DL (8.5-10.1); CARBON DIOXIDE LEVEL 31 MEQ/L (21-32); CHLORIDE LEVEL 101 MEQ/L (98-107); CREATININE FOR GFR 0.76 MG/DL (0.70-1.30); FREE T4 1.13 NG/DL (0.76-1.46); GLOMERULAR FILTRATION RATE > 60.0 (>60); GLUCOSE, FASTING 209 MG/DL (70-100); POTASSIUM SERUM 4.6 MEQ/L (3.5-5.1); SODIUM LEVEL 138 MEQ/L (136-145); THYROID STIMULATING HORMONE 0.391 uIU/ML (0.358-3.740)
[2020-09-10 14:39] LABS: MALB URINE SIEMENS 80.9 MG/L; MAU/CREAT RATIO 43.2 MCG/MG (0.0-30.0)
[2020-09-10 15:17] LABS: HEMOGLOBIN A1c 9.6 %
== END ==
LOC: M WUC 10:02
PROVIDERS: ATTEND Nurse Practitioner Family
DX: Z13.1 Encounter for screening for diabetes mellitus (principal); R03.0 Elevated blood-pressure reading, without diagnosis of hypertension

== ENCOUNTER 2020-10-04 13:51 | Emergency (ER) | payer MEDICAID ==
[~2020-10-04] VITALS: Ht 175.3 cm; Wt 113.6 kg
--- OUTSIDE RECORDS SUMMARY | 2020-10-04 13:56 | CCD ---
Author Author [facility] Organization [facility] Address Unknown Phone Unavailable Support Name Relationship Address Phone VENU MENDOZA SR Next Of Kin [address] [place] [address] MIN ADAMSON Next Of Kin [address] [address] ALEXA BALDWIN Next Of Kin [address] [place] [address] UE Next Of Kin Unknown Unavailable YELLOWCAB Next Of Kin [address] [place] [address] ILEANA RACHEL Next Of Kin [address] [place] [address] Re-disclosure Warning The records that you are about to access may contain information from federally-assisted alcohol or drug abuse programs. If such information is present, then the following federally mandated warning applies: This information has been disclosed to you from records protected by federal confidentiality rules (42 CFR part 2). The federal rules prohibit you from making any further disclosure of this information unless further disclosure is expressly permitted by the written consent of the person to whom it pertains or as otherwise permitted by 42 CFR part 2. A general authorization for the release of medical or other information is NOT sufficient for this purpose. The Federal rules restrict any use of the information to criminally investigate or prosecute any alcohol or drug abuse patient.The records that you are about to access may contain highly sensitive health information, the redisclosure of which is protected by Article 27-F of the [facility] Public Health law. If you continue you may have access to information: Regarding HIV / AIDS; Provided by facilities licensed or operated by the [facility] Office of Mental Health; or Provided by the [facility] Office for People With Developmental Disabilities. If such information is present, then the following [facility] mandated warning applies: This information has been disclosed to you from confidential records which are protected by state law. State law prohibits you from making any further disclosure of this information without the specific written consent of the person to whom it pertains, or as otherwise permitted by law. Any unauthorized further disclosure in violation of state law may result in a fine or nursing home sentence or both. A general authorization for the release of medical or other information is NOT sufficient authorization for further disc losure. Insurance Providers Payer name Policy type / Coverage type Policy ID Covered green party ID Covered green party's relationship to gaston Policy Gaston Plan Information EMEDNY [id number] SP [id number] [facility]) O [id number] S [id number] SELF PAY ONLY [id number] SP [id number] [facility] MCDO [id number] SP [id number] MEDICAID [id number] SP [id number] SELF PAY UNAVAILABLE SP UNAVAILA BLE
[2020-10-04] MEDS ORDERED: METF10004 PO (14:03)
[2020-10-04] MEDS ORDERED: METF500T13 PO (14:03)
[2020-10-04] MEDS ORDERED: CELE10TA PO (14:03)
[2020-10-04 14:21] LABS: HEMATOCRIT 45.8 % (42.0-52.0); HEMOGLOBIN 14.9 g/dl (13.5-17.5); MEAN CORPUSCULAR HEMOGLOBIN 30.3 pg (27.0-33.0); MEAN CORPUSCULAR HGB CONC 32.5 g/dl (32.0-36.5); MEAN CORPUSCULAR VOLUME 93.1 fl (80.0-96.0); PLATELET COUNT, AUTOMATED 221 10^3/uL (150-450); RED BLOOD COUNT 4.92 10^6/uL (4.30-6.10); WHITE BLOOD COUNT 14.6 10^3/uL (4.0-10.0)
--- OUTSIDE RECORDS SUMMARY | 2020-10-04 14:48 | CCD ---
Author Author [facility] Organization [facility] Address Unknown Phone Unavailable Support Name Relationship Address Phone BHAVESH BISHOP Next Of Kin [address] [place] [address] VENU MENDOZA SR Next Of Kin [address] [place] [address] JUAN DIEGO MIN Next Of Kin [address] [address] ALEXA BALDWIN Next Of Kin [address] [place] [address] UE Next Of Kin Unknown Unavailable YELLOWCAB Next Of Kin [address] [place] [address] ILEANARACHEL Trejo Next Of Kin [address] [place] [address] Re-disclosure Warning The records that you are [...] is protected by Article 27-F of the [facility] Public Health law. If you continue you may have access to information: Regarding HIV / AIDS; Provided by facilities licensed or operated by the [facility] Office of Mental Health; or Provided by the [facility] Office for People With Developmental Disabilities. If such information is present, then the following [facility] mandated warning applies: This information has been [...] law may result in a fine or fpc sentence or both. A general authorization for the release of medical or other information is NOT sufficient authorization for further disc losure. Insurance Providers Payer name Policy type / Coverage type Policy ID Covered green party ID Covered green party's relationship to miller Policy Miller Plan Information EMEDNY [id number] SP [id number] [facility] O [id number] S [id number] SELF PAY ONLY [id number] SP [id number] [facility] COMM[facility] PL[facility] MCDO [id number] SP [id number] MEDICAID [id number] SP [id number] SELF PAY UNAVAILABLE SP UNAVAILA BLE
[2020-10-04 14:53] LABS: AMPHETAMINES LEVEL URINE NEGATIVE (NEGATIVE); BARBITURATES URINE NEGATIVE (NEGATIVE); BENZODIAZEPINES URINE NEGATIVE (NEGATIVE); CANNABINOIDS URINE POSITIVE (NEGATIVE); COCAINE METABOLITE URINE NEGATIVE (NEGATIVE); METHADONE URINE NEGATIVE (NEGATIVE); OPIATES URINE NEGATIVE (NEGATIVE); PHENCYCLIDINE URINE NEGATIVE (NEGATIVE)
[2020-10-04 15:00] LABS: ACETAMINOPHEN LEVEL < 2.0 UG/ML (10.0-30.0); ALBUMIN 4.3 GM/DL (3.2-5.2); ALT/SGPT 31 U/L (12-78); BILIRUBIN,DIRECT 0.2 MG/DL (0.0-0.2); BILIRUBIN,TOTAL 0.5 MG/DL (0.2-1.0); BLOOD UREA NITROGEN 15 MG/DL (7-18); CALCIUM LEVEL 9.2 MG/DL (8.5-10.1); CARBON DIOXIDE LEVEL 28 MEQ/L (21-32); CHLORIDE LEVEL 103 MEQ/L (98-107); CREATININE FOR GFR 0.88 MG/DL (0.70-1.30); ETHYL ALCOHOL (ETHANOL) < 0.003 % (0.000-0.010); GLOMERULAR FILTRATION RATE > 60.0 (>60); GLUCOSE, FASTING 226 MG/DL (70-100); POTASSIUM SERUM 4.4 MEQ/L (3.5-5.1); SALICYLATE LEVEL 3.6 MG/DL (5.0-30.0); SODIUM LEVEL 138 MEQ/L (136-145); THYROID STIMULATING HORMONE 0.275 uIU/ML (0.358-3.740); TOTAL PROTEIN 7.5 GM/DL (6.4-8.2)
[2020-10-04 17:16] VITALS: BP 184/95
== END 2020-10-04 17:20 | disposition home or self-care (01) ==
LOC: M ED 13:51
DX: Z04.6 Encounter for general psychiatric examination, requested by authority (principal); F90.9 Attention-deficit hyperactivity disorder, unspecified type; E11.9 Type 2 diabetes mellitus without complications; F17.200 Nicotine dependence, unspecified, uncomplicated; Z79.84 Long term (current) use of oral hypoglycemic drugs; Z79.899 Other long term (current) drug therapy; Z88.1 Allergy status to other antibiotic agents
CPT/HCPCS: 36415; 80048; 80076; 80307; 84443; 85027; 99284; G0480

== ENCOUNTER 2021-05-21 17:37 | Inpatient (IN) | payer MEDICAID, OTHER ==
[~2021-05-21] VITALS: Ht 182.9 cm; Wt 122.7 kg
[~2021-05-21 17:37] MED LIST: CELE10TA PO; METF10004 PO; METF500T13 PO
[2021-05-21 18:31] LABS: HEMATOCRIT 46.4 % (42.0-52.0); HEMOGLOBIN 15.8 g/dl (13.5-17.5); MEAN CORPUSCULAR HEMOGLOBIN 29.9 pg (27.0-33.0); MEAN CORPUSCULAR HGB CONC 34.1 g/dl (32.0-36.5); MEAN CORPUSCULAR VOLUME 87.9 fl (80.0-96.0); PLATELET COUNT, AUTOMATED 220 10^3/uL (150-450); RED BLOOD COUNT 5.28 10^6/uL (4.30-6.10)
[2021-05-21 18:49] LABS: ALBUMIN 3.5 GM/DL (3.2-5.2); ALT/SGPT 46 U/L (12-78); BILIRUBIN,DIRECT 0.3 MG/DL (0.0-0.2); BILIRUBIN,TOTAL 1.1 MG/DL (0.2-1.0); BLOOD UREA NITROGEN 11 MG/DL (7-18); CALCIUM LEVEL 9.3 MG/DL (8.5-10.1); CARBON DIOXIDE LEVEL 25 MEQ/L (21-32); CHLORIDE LEVEL 94 MEQ/L (98-107); CREATININE FOR GFR 1.09 MG/DL (0.70-1.30); GLOMERULAR FILTRATION RATE > 60.0 (>60); GLUCOSE, FASTING 469 MG/DL (70-100); POTASSIUM SERUM 4.2 MEQ/L (3.5-5.1); SODIUM LEVEL 132 MEQ/L (136-145); TOTAL PROTEIN 7.2 GM/DL (6.4-8.2)
[2021-05-21 19:17] LABS: WHITE BLOOD COUNT 31.5 10^3/uL (4.0-10.0)
[2021-05-21 19:22] LABS: ATYPICAL LYMPH 1 % (0-5); LYMPHOCYTES 9 % (16-44); MONOCYTES 7 % (0-5); NEUTROPHILS 77 % (28-66)
[2021-05-21 19:24] LABS: PLATELET CLUMPS SMALL AMT; PLATELET ESTIMATE NORMAL (NORMAL)
[2021-05-21] MEDS ORDERED: FAMOTIDINE INJ 20MG/2ML VIAL (S0028 PER 1) IVP ONE (19:25)
[2021-05-21] MEDS ORDERED: NS 1,000 ML IV ONE ×2 (19:25→20:35)
[2021-05-21] MEDS ORDERED: ACETAMINOPHEN 325 MG TAB PO ONE (19:30)
[2021-05-21] MEDS ORDERED: AMLO1TAB24 PO (19:46)
[2021-05-21] MEDS ORDERED: HOME MED LIST COMPLETE! XX SCH (19:50)
--- NOTE | 2021-05-21 20:06 | REP ---
INDICATION: Abdominal Pain. COMPARISON: None. FINDINGS: The superior mediastinal structures are midline. The cardiac silhouette is unremarkable in size, shape, and position. The diaphragmatic surfaces of the lungs are regular, and the costophrenic angles are clear. The pulmonary valentin are clear. The imaged osseous structures are intact. IMPRESSION: There is no acute cardiopulmonary disease. <Electronically signed by Chaim Syed > 05/21/212001
[2021-05-21] MEDS ORDERED: VANCOMYCIN HCL 2,000 MG in D5W 500 ML IV ONE (20:20)
[2021-05-21] MEDS ORDERED: VANCOMYCIN HCL 1,000 MG, VIAL MATE ADAPTER 1 EACH in NS 250 ML IV ONE ×2 (20:30→21:30)
[2021-05-21] MEDS ORDERED: LEVEMIR (INSULIN DETEMIR) 1 UNITS/0.01ML SC SCH (21:00)
[2021-05-21 21:53] LABS: RSV AMPLIFICATION NEGATIVE (NEGATIVE)
[2021-05-21] MEDS ORDERED: SODIUM CHLORIDE 0.9% 1000ML IV STA (21:56)
[2021-05-21] MEDS ORDERED: DEXTROSE 50% 50 ML SYRINGE IV PRN (22:00)
[2021-05-21] MEDS ORDERED: GLUCOSE 4GM CHEW TABLET PO PRN (22:00)
[2021-05-21] MEDS ORDERED: methylPREDNISolone 125MG 2ML VIAL IV ONE (22:00)
[2021-05-21] MEDS ORDERED: GLUCAGON INJ 1MG VIAL SC PRN (22:00)
--- NOTE | 2021-05-21 22:23 | REPVR ---
PROCEDURE INFORMATION: Exam: US Soft Tissue Head and Neck, Soft Tissue Exam date and time: 05/21/2021 9:25 PM Age: 36 years old Clinical indication: Mass, lump, or swelling in neck; Right; Additional info: Abscess right neck TECHNIQUE: Imaging protocol: Real-time ultrasound scan of the head and neck with image documentation. Exam focused on the soft tissue in the region of clinical concern. COMPARISON: No relevant prior studies available. FINDINGS: Soft tissues: In the red area of concern right side of the neck there is a 1.5 cm round complex mostly echogenic area. This is consistent with an area of inflammation and infection. There is no well-formed abscess in this location. However further evaluation with CT or MRI might be considered especially if this does not resolve clinically. IMPRESSION: 1.5 cm echogenic area probably inflammation and infection. No focal well-formed fluid collection. Recommend follow-up CT or MRI if this does not resolve. Electronically signed by: Ozzie Bustos On 05/21/2021 22:23:31 PM
--- NOTE | 2021-05-21 22:35 | HPEPDOC ---
[facility] Medical History & Physical Date of Admission May 21, 2021 Date of Service: May 21, 2021 Primary Care Physician: PB MCFARLANE Attending Physician: JANNETTE REDD MD History and Physical CHIEF COMPLAINT: Rash HISTORY OF PRESENT ILLNESS: Patient is a 36-year-old male who was in his normal state of health until about 1700 today when he woke up with a pruritic rash all over his body. He called a friend who is a former EMT to evaluate him and per her report he was also gasping for air at the time and recommended calling EMS to come to the hospital. Outside of the rash he denies any fever, chills, chest pain, difficulty breathing, wheezing, tongue swelling, lip swelling, nausea, vomiting, abdominal pain, loose stools, constipation, dysuria, hematuria. He states this is never happened before. REVIEW OF SYSTEMS: Constitutional: Denies night sweats, or recent unexpected weight change. Admits to fevers, chills. HEENT: Denies headaches, head trauma, no visual changes or eye pain, denies nosebleeds or difficulty swallowing. Cardiovascular: Denies chest pain, palpitations, or orthopnea. Respiratory: Denies cough, wheezing, or shortness of breath GI: Denies nausea, vomiting, abdominal pain, diarrhea, or constipation : Denies pain with urination or frequency Musculoskeletal: Denies joint pain or swelling Neuro/psych: Denies muscle weakness or sensory loss Skin: Admits to skin changes as above PAST MEDICAL HISTORY: #. Type 2 diabetes (diagnosed 2019) #. Hypertension #. Anxiety PAST SURGICAL HISTORY: None SOCIAL HISTORY: Half pack per day smoker since the age of 17. Occasional alcohol use. Occasional marijuana use. Denies any heroin, cocaine, PCP, or other illicit drug use No history of recent travel. 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 FAMILY HISTORY: Mother with diabetes, peripheral artery disease ALLERGIES: Please see below. HOME MEDICATIONS: Please see below. PHYSICAL EXAMINATION: VITAL SIGNS: See below GENERAL APPEARANCE: Diaphoretic appearing male who appears stated age laying on his back in bed in no acute distress HEENT: NC, AT, EOMI, no scleral icterus, moist mucous membranes, no pharyngeal erythema. Neck: Cervical lymphadenopathy more pronounced in the right side, 1 cm circular wound in the posterior neck with minimal purulent drainage, surrounding area of erythema is minimal, nontender to palpation. CARDIOVASCULAR: Tachycardic rate, regular rhythm, normal S1-S2. No murmurs, gallops, rubs. LUNGS: CTAB with full breath sounds, no wheezes, crackles, or rhonchi. ABDOMEN: Soft, obese, non-tender, non-distended, bowel sounds present. No hepatosplenomegaly. No masses or ecchymosis. No CVA tenderness. Back: Circular 0.5 cm wound with purulent drainage, no induration or surrounding erythema. On palpation does appear to have some sort of a pocket underneath the skin that is relatively superficial EXTREMITIES: No swelling or edema Skin: Diffuse mildly erythematous urticarial rash present predominantly on the anterior abdomen and lower extremities extending to the knees bilaterally. Not appreciated on the back, face or arms. NEUROLOGICAL: No focal or sensory deficits. CN II-XII grossly intact. PSYCHIATRIC: Normal mood and affect LABORATORY DATA: See below. IMAGIN05/21/2021 chest x-ray: "Impression: No acute cardiopulmonary process." 05/21/2021 ultrasound of neck: "IMPRESSION: 1.5 cm echogenic area probably inflammation and infection. No focal well-formed fluid collection. Recommend follow-up CT or MRI if this does not resolve. " MICROBIOLOGY: Please see below. Assessment/Plan: #. Severe sepsispossible secondary to abscesses on neck and shoulder Febrile, tachycardic, elevated white blood cell count, elevated lactic acid meets SIRS criteria with a source of infection present on the skin Continue IV vancomycin, will start IV zosyn for empiric coverage and to cover for anaerobic/gram negative source in back abscesses. Patient already received 2 L in ED, continue with 30 cc/kg bolus, follow-up repeat lactic acid Wound culture of left upper back taken in the room as I was able to drain some pus from it. Unable to drain pus from neck lesion. Only 1 blood culture ordered by ED provider and patient has since gotten first dose of IV vancomycin. If patient continues to spike fevers, plan to repeat x2 blood cultures Ultrasound of the neck was ordered for the possible abscess. Will await results. Patient is currently stable and can likely wait for surgical evaluation of his neck and the left side of his back until the morning. #. Rash Rash appears urticarial in nature but without obvious source. We will also order TANAMY to evaluate for possible inflammatory causes We will give one-time dose of 125 mg IV Solu-Medrol and continue to monitor the patient He denies any new exposures or recent changes to any foods, skin, or cleaning products that he uses #. Type 2 diabetes Consistent carbohydrate diet Sliding scale insulin Last A1c on record was 9.6 in August 2020, reordering A1c #. Hypertension In light of sepsis, will hold home amlodipine #. Anxiety Continue home citalopram # Obesity -complicates care DVT prophylaxis: Lovenox Disposition: Pending clinical improvement CODE STATUS: Full code Vital Signs Vital Signs Date Time Temp Pulse Resp B/P (MAP) Pulse Ox O2 Delivery O2 Flow Rate FiO2 05/21/21 21:30 101.0 108 16 171/88 (115) 97 Room Air 05/21/21 20:15 2.0 Laboratory Data Labs 24H Laboratory Tests 2 05/21/21 18:02: Lactic Acid Level 3.4*H 05/21/21 18:03: Neutrophils (%) (Auto) , Nucleated Red Blood Cells % (auto) 0.0, Neutrophils 77H, Band Neutrophils 6, Lymphocytes (Manual) 9L, Monocytes (Manual) 7H, Atypi tino Lymphocytes 1, Platelet Estimate NORMAL, Clumped Platelets SMALL AMT, Anion Gap 13, Glomerular Filtration Rate > 60.0, Calcium Level 9.3, Total Bilirubin 1.1H, Direct Bilirubin 0.3H, Aspartate Amino Transf (AST/SGOT) 19, Alanine Aminotransferase (ALT/SGPT) 46, Alkaline Phosphatase 81, Total Protein 7.2, Albumin 3.5, Albumin/Globulin Ratio 0.9 05/21/21 19:39: Urine Color YELLOW, Urine Appearance CLEAR, Urine pH 5.0, Urine Specific [place] 1.036, Urine Protein NEGATIVE, Urine Glucose (UA) 3+H, Urine Ketones 2+H, Urine Blood NEGATIVE, Urine Nitrite NEGATIVE, Urine Bilirubin NEGATIVE, Urine Urobilinogen 0.2, Urine Leukocyte Esterase NEGATIVE, Urine WBC (Auto) 0, Urine RBC (Auto) 4H, Urine Hyaline Casts (Auto) 0, Urine Bacteria (Auto) NEGATIVE, Urine Squamous Epithelial Cells 0, Urine Sperm (Auto) 05/21/21 20:56: Coronavirus (COVID-19)(PCR) NEGATIVE, Influenza Type A (RT-PCR) NEGATIVE, Influenza Type B (RT-PCR) NEGATIVE, Respiratory Syncytial Virus (PCR) NEGATIVE CBC/BMP Laboratory Tests 05/21/21 18:03 Microbiology Microbiology 05/21/21 Blood Culture, Received Pending Home Medications Scheduled Amlodipine Besylate (Amlodipine Besylate) 5 Mg Tablet, 5 MG PO DAILY Citalopram Hydrobromide (Celexa) 10 Mg Tablet, 10 MG PO DAILY Metformin HCl (Metformin HCl) 1,000 Mg Tablet, 1,000 MG PO BID Allergies Coded Allergies: cefaclor (Verified Allergy, Mild, hives, 10/04/20) GME ATTESTATION GME ATTESTATION My faculty preceptor for this patient encounter was physically present during the encounter and was fully available. All aspects of the patient interview, examination, medical decision making process, and medical care plan development were reviewed and approved by the faculty preceptor. The faculty preceptor is aware and concurs with the plan as stated in the body of this note and will attest to such by his/her cosignature. GME ATTESTATION GME ATTESTATION My faculty preceptor for this patient encounter was physically present during the encounter and was fully available. All aspects of the patient interview, examination, medical decision making process, and medical care plan development were reviewed and approved by the faculty preceptor. The faculty preceptor is aware and concurs with the plan as stated in the body of this note and will attest to such by his/her cosignature. ATTENDING NOTE Time of service 10:05pm I independently examined the patient, reviewed the note and agree with the findings as documented by is a 36 yr old admitted for evaluation of diffuse rash & skin lesions associated with SIRS / Sepsis & lactic acidosis . - f/u pancx, ESR, CRP, peripheral smear, HIV, Hep panel and consider ID consult if the work-up is equivocal APURVA SILVA DO May 21, 2021 22:35 JANNETTE REDD MD May 22, 2021 01:00
[2021-05-21 23:00] LABS: HEMOGLOBIN A1c 11.6 %
[2021-05-21 23:24] VITALS: BP 164/97
[2021-05-21] MEDS: HumaLOG INSULIN (NovoLOG) PER UNIT SC SCH (23:58)
[2021-05-22] MEDS ORDERED: NS 1,000 ML IV ONE (00:55)
--- NOTE | 2021-05-22 04:01 | REPVR ---
PROCEDURE INFORMATION: Exam: US Left Non-Vascular Joint or Other Extremity Structure Exam date and time: 05/22/2021 1:55 AM Age: 36 years old Clinical indication: Mass or lump; Shoulder; Left; Additional info: Left upper back abscess TECHNIQUE: Imaging protocol: Left US joint or other nonvascular extremity structure or structures. Real-time ultrasound with image documentation. Limited study. Exam focused on the upper extremity in the region of clinical interest. COMPARISON: No relevant prior studies available. FINDINGS: Soft tissues: Sonographic evaluation of the left upper back was performed in the region of clinical concern. Approximately 4 mm deep to the skin surface is a small complex collection containing low-level internal echoes and debris measuring 0.6 x 0.5 x 0.6 cm, consistent with a small abscess. IMPRESSION: Subcentimeter complex collection left upper back in the region of clinical concern, consistent with a small abscess. Electronically signed by: Stanford Stewart On 05/22/2021 04:00:39 AM
[2021-05-22] MEDS: PIPERACILLIN/TAZOBACTAM SOD 3.375 GM in D5W MINI-BAG PLUS 50 ML IV SCH ×4 (04:57→21:17)
[2021-05-22] MEDS: ACETAMINOPHEN TAB 650MG DOSE (2X325MG) PO PRN ×2 (05:06→21:15)
[2021-05-22 06:00] VITALS: BP 152/109
[2021-05-22 06:12] LABS: HEMATOCRIT 40.3 % (42.0-52.0); MEAN CORPUSCULAR HGB CONC 33.7 g/dl (32.0-36.5); MEAN CORPUSCULAR VOLUME 88.8 fl (80.0-96.0); PLATELET COUNT, AUTOMATED 188 10^3/uL (150-450); RED BLOOD COUNT 4.54 10^6/uL (4.30-6.10); WHITE BLOOD COUNT 28.7 10^3/uL (4.0-10.0)
[2021-05-22 06:29] LABS: HEMOGLOBIN 13.6 g/dl (13.5-17.5)
[2021-05-22 06:31] LABS: BLOOD UREA NITROGEN 13 MG/DL (7-18); CALCIUM LEVEL 8.3 MG/DL (8.5-10.1); CARBON DIOXIDE LEVEL 23 MEQ/L (21-32); CHLORIDE LEVEL 99 MEQ/L (98-107); CREATININE FOR GFR 0.86 MG/DL (0.70-1.30); GLOMERULAR FILTRATION RATE > 60.0 (>60); GLUCOSE, FASTING 363 MG/DL (70-100); SODIUM LEVEL 132 MEQ/L (136-145)
[2021-05-22] MEDS ORDERED: VANCOMYCIN HCL 1,000 MG, VIAL MATE ADAPTER 1 EACH in NS 250 ML IV SCH (08:00)
[2021-05-22] MEDS: ENOXAPARIN 40MG/0.4ML SYRINGE (J1650 PER 10MG) SC SCH (08:41)
[2021-05-22] MEDS: CitaloPRAM (CeleXA) 10 MG TABLET PO SCH (08:41)
[2021-05-22] MEDS: HumaLOG INSULIN (NovoLOG) PER UNIT SC SCH ×4 (08:42→21:16)
[2021-05-22] MEDS ORDERED: LEVEMIR (INSULIN DETEMIR) 1 UNITS/0.01ML SC SCH (09:00)
[2021-05-22 10:25] LABS: HEPATITIS A ANTIBODY IGM NEGATIVE (NEGATIVE); HEPATITIS B CORE ANTIBODY IGM NEGATIVE (NEGATIVE); HEPATITIS B SURFACE ANTIGEN NEGATIVE (NEGATIVE); HIV 1&2 SCREEN CENTAUR NEGATIVE (NEGATIVE)
--- NOTE | 2021-05-22 11:38 | IPNPDOC ---
Subjective Date Seen The patient was seen on 05/22/21. Subjective Chief Complaint/HPI Was febrile overnight with a T-max of 101.1. Reports that he feels better this morning. He denies any shortness of breath. Objective Physical Examination General Exam: Positive: Alert, Cooperative, No Acute Distress Eye Exam: Positive: PERRLA, Conjunctiva & lids normal, EOMI; Negative: Sclera icteric ENT Exam: Positive: Atraumatic, Mucous membr. moist/pink, Pharynx Normal Neck Exam: Positive: Supple, Other (Right side of neck erythematous and tender); Negative: JVD, thyromegaly Chest Exam: Positive: Clear to auscultation, Normal air movement Heart Exam: Positive: Rate Normal, Regular Rhythm, Normal S1, Normal S2; Negative: Murmurs, Rubs Abdomen Exam: Positive: Normal bowel sounds, Soft; Negative: Tenderness Extremity Exam: Negative: Clubbing, Cyanosis, Edema Skin Exam: Positive: Other skin issue (Left upper back with an abscess) Psych Exam: Positive: Memory Intact, Oriented x 3 Assessment /Plan Assessment Patient is a 36-year-old male with past medical history of diabetes hypertension and anxiety who presented to the ED with sudden onset of a pruritic rash all over his body, tachypnea and gasping for air noted by a friend who is an EMT. In the emergency department he was found to have a wound on his neck that was swollen and concerning for possible source of infection, a white blood cell count of 31,000, and lactic acidosis. He was admitted for sepsis, cellulitis and abscess of the neck and on the back left upper chest. Cellulitis and abscess of the neck and left upper back Continue Vanco and Zosyn MRSA PCR positive Blood and wound cultures in progress Sepsis with lactic acidosis Received IV fluid bolus as per sepsis protocol Continue antibiotics as per above Rash Resolved Type 2 diabetes Sugars uncontrolled. A1c of 11.2. This a.m. sugar over 400 Levemir, lispro as per sliding scale Fingerstick before meals and at bedtime Carb consistent diet Hypertension Will restart amlodipine if blood pressure rises Anxiety Continue citalopram Plan/VTE VTE Prophylaxis Ordered?: Yes VS, I&O, 24H, Fishbone Vital Signs/I&O Vital Signs Date Time Temp Pulse Resp B/P (MAP) Pulse Ox O2 Delivery O2 Flow Rate FiO2 05/22/21 06:00 98.1 107 20 152/109 (123) 98 Room Air 05/21/21 20:15 2.0 I&O- Last 24 Hours up to 6 AM 05/22/21 06:00 Intake Total 3120 ml Output Total 450 ml Balance 2670 ml Laboratory Data 24H LABS Laboratory Tests 2 05/21/21 18:02: Differential Slide Review Report, Peripheral Blood Smear Path Consult PERIPHERAL SMEAR, Lactic Acid Level 3.4*H 05/21/21 18:03: Neutrophils (%) (Auto) , Nucleated Red Blood Cells % (auto) 0.0, Neutrophils 77H, Band Neutrophils 6, Lymphocytes (Manual) 9L, Monocytes (Manual) 7H, Atypical Lymphocytes 1, Platelet Estimate NORMAL, Clumped Platelets SMALL AMT, Anion Gap 13, Glomerular Filtration Rate > 60.0, Estimated Mean Plasma Glucose 286H, Hemoglobin A1c 11.6, Calcium Level 9.3, Total Bilirubin 1.1H, Direct Bilirubin 0.3H, Aspartate Amino Transf (AST/SGOT) 19, Alanine Aminotransferase (ALT/SGPT) 46, Alkaline Phosphatase 81, C-Reactive Protein, Quantitative 13.20H, Total Protein 7.2, Albumin 3.5, Albumin/Globulin Ratio 0.9 05/21/21 19:39: Urine Color YELLOW, Urine Appearance CLEAR, Urine pH 5.0, Urine Specific [place] 1.036, Urine Protein NEGATIVE, Urine Glucose (UA) 3+H, Urine Ketones 2+H, Urine Blood NEGATIVE, Urine Nitrite NEGATIVE, Urine Bilirubin NEGATIVE, Urine Urobilinogen 0.2, Urine Leukocyte Esterase NEGATIVE, Urine WBC (Auto) 0, Urine RBC (Auto) 4H, Urine Hyaline Casts (Auto) 0, Urine Bacteria (Auto) NEGATIVE, Urine Squamous Epithelial Cells 0, Urine Sperm (Auto) 05/21/21 20:56: Coronavirus (COVID-19)(PCR) NEGATIVE, Influenza Type A (RT-PCR) NEGATIVE, Influenza Type B (RT-PCR) NEGATIVE, Respiratory Syncytial Virus (PCR) NEGATIVE 05/21/21 23:45: Lactic Acid Followup at 4 Hours 2.2*H 05/21/21 23:55: Bedside Glucose (Misc Panel) 385H 05/22/21 01:55: Methicillin-Resist S.aureus DNA PCR DETECTEDA 05/22/21 05:25: Nucleated Red Blood Cells % (auto) 0.0, Anion Gap 10, Glomerular Filtration Rate > 60.0, Calcium Level 8.3L CBC/BMP Laboratory Tests 05/21/21 18:03 05/22/21 05:25 Microbiology Microbiology 05/21/21 Wound Culture, Received Pending 05/21/21 Blood Culture, Received Pending Rosanne Umaña MD May 22, 2021 08:02
[2021-05-22 14:00] VITALS: BP 175/99
[2021-05-22] MEDS: amLODIPine 5 MG TAB PO SCH (16:23)
[2021-05-22] MEDS: VANCOMYCIN HCL 750 MG, VIAL MATE ADAPTER 1 EACH in NS 250 ML IV SCH ×2 (18:42→20:12)
[2021-05-22 21:00] VITALS: BP 182/97
[2021-05-22] MEDS ORDERED: CAPTOpril 3.125 MG PER 1/4 TABLET PO ONE (21:00)
[2021-05-22] MEDS: LEVEMIR (INSULIN DETEMIR) 1 UNITS/0.01ML SC SCH (21:16)
[2021-05-23 02:00] VITALS: BP 164/88
[2021-05-23] MEDS: VANCOMYCIN HCL 750 MG, VIAL MATE ADAPTER 1 EACH in NS 250 ML IV SCH ×2 (02:30→03:44)
[2021-05-23] MEDS ORDERED: IBUPROFEN 800 MG TAB PO ONE (02:35)
[2021-05-23] MEDS ORDERED: PERCOCET 5MG/325MG TAB PO PRN (02:35)
[2021-05-23] MEDS: PIPERACILLIN/TAZOBACTAM SOD 3.375 GM in D5W MINI-BAG PLUS 50 ML IV SCH ×4 (04:57→21:02)
[2021-05-23 06:00] VITALS: BP 137/88
[2021-05-23 06:38] LABS: HEMATOCRIT 38.1 % (42.0-52.0); HEMOGLOBIN 12.9 g/dl (13.5-17.5); MEAN CORPUSCULAR HEMOGLOBIN 30.1 pg (27.0-33.0); MEAN CORPUSCULAR HGB CONC 33.9 g/dl (32.0-36.5); MEAN CORPUSCULAR VOLUME 88.8 fl (80.0-96.0); PLATELET COUNT, AUTOMATED 189 10^3/uL (150-450); RED BLOOD COUNT 4.29 10^6/uL (4.30-6.10); WHITE BLOOD COUNT 23.8 10^3/uL (4.0-10.0)
[2021-05-23 07:09] LABS: BLOOD UREA NITROGEN 14 MG/DL (7-18); CALCIUM LEVEL 8.2 MG/DL (8.5-10.1); CARBON DIOXIDE LEVEL 25 MEQ/L (21-32); CHLORIDE LEVEL 102 MEQ/L (98-107); CREATININE FOR GFR 0.69 MG/DL (0.70-1.30); GLOMERULAR FILTRATION RATE > 60.0 (>60); GLUCOSE, FASTING 256 MG/DL (70-100); POTASSIUM SERUM 3.8 MEQ/L (3.5-5.1); SODIUM LEVEL 134 MEQ/L (136-145)
[2021-05-23] MEDS: LEVEMIR (INSULIN DETEMIR) 1 UNITS/0.01ML SC SCH ×2 (09:19→21:01)
[2021-05-23] MEDS: ENOXAPARIN 40MG/0.4ML SYRINGE (J1650 PER 10MG) SC SCH (09:19)
[2021-05-23] MEDS: HumaLOG INSULIN (NovoLOG) PER UNIT SC SCH ×4 (09:19→21:01)
[2021-05-23] MEDS: amLODIPine 5 MG TAB PO SCH (09:22)
[2021-05-23] MEDS: CitaloPRAM (CeleXA) 10 MG TABLET PO SCH (09:22)
--- NOTE | 2021-05-23 11:31 | IPNPDOC ---
Subjective Date Seen The patient was seen on 05/23/21. Subjective Chief Complaint/HPI Feels better this morning. Low-grade fever last night with a T-max of 100.2. Sugars a little improved this morning. The redness in his right neck has improved. Objective Physical Examination General Exam: Positive: Alert, Cooperative, No Acute Distress Eye Exam: Positive: PERRLA, Conjunctiva & lids normal, EOMI; Negative: Sclera icteric ENT Exam: Positive: Atraumatic, Mucous membr. moist/pink, Pharynx Normal Neck Exam: Positive: Supple, Other (Right side of neck erythematous and tender); Negative: JVD, thyromegaly Chest Exam: Positive: Clear to auscultation, Normal air movement Heart Exam: Positive: Rate Normal, Regular Rhythm, Normal S1, Normal S2; Negative: Murmurs, Rubs Abdomen Exam: Positive: Normal bowel sounds, Soft; Negative: Tenderness Extremity Exam: Negative: Clubbing, Cyanosis, Edema Skin Exam: Positive: Other skin issue (Left upper back with an abscess) Psych Exam: Positive: Memory Intact, Oriented x 3 Assessment /Plan Assessment Patient is a 36-year-old male with past medical history of diabetes hypertension and anxiety who presented to the ED with sudden onset of a pruritic rash all over his body, tachypnea and gasping for air noted by a friend who is an EMT. In the emergency department he was found to have a wound on his neck that was swollen and concerning for possible source of infection, a white blood cell count of 31,000, and lactic acidosis. He was admitted for sepsis, cellulitis and abscess of the neck and on the back left upper chest. Cellulitis and abscess of the right neck and small furuncle left upper back Continue Vanco and Zosyn MRSA PCR positive Blood negative till date and wound cultures in progress Sepsis with lactic acidosis Received IV fluid bolus as per sepsis protocol Continue antibiotics as per above Rash Resolved Type 2 diabetes Sugars uncontrolled. A1c of 11.2. This a.m. sugar over 400 Levemir, lispro as per sliding scale Fingerstick before meals and at bedtime Carb consistent diet Hypertension Will restart amlodipine if blood pressure rises Anxiety Continue citalopram Plan/VTE VTE Prophylaxis Ordered?: Yes VS, I&O, 24H, Fishbone Vital Signs/I&O Vital Signs Date Time Temp Pulse Resp B/P (MAP) Pulse Ox O2 Delivery O2 Flow Rate FiO2 05/23/21 09:22 84 144/88 05/23/21 06:00 97.7 16 98 Room Air 05/21/21 20:15 2.0 I&O- Last 24 Hours up to 6 AM 05/23/21 06:00 Intake Total 3230 ml Output Total 1975 ml Balance 1255 ml Laboratory Data 24H LABS Laboratory Tests 2 05/22/21 15:06: Vancomycin Level Trough 6.6L 05/22/21 16:37: Bedside Glucose (Misc Panel) 284H 05/22/21 19:24: Bedside Glucose (Misc Panel) 304H 05/23/21 05:45: Nucleated Red Blood Cells % (auto) 0.0, Anion Gap 7L, Glomerular Filtration Rate > 60.0, Calcium Level 8.2L 05/23/21 09:53: Vancomycin Level Trough 7.9L CBC/BMP Laboratory Tests 05/23/21 05:45 Microbiology Microbiology 05/21/21 Wound Culture, Received Pending 05/21/21 Blood Culture - Preliminary, Resulted No growth after 24 hours . All specim... Rosanne Umaña MD May 23, 2021 11:31
[2021-05-23] MEDS: VANCOMYCIN HCL 1,000 MG, VIAL MATE ADAPTER 1 EACH in NS 250 ML IV SCH ×3 (11:49→22:31)
[2021-05-23] MEDS ORDERED: VANCOMYCIN HCL 1,000 MG, VIAL MATE ADAPTER 1 EACH in NS 250 ML IV ONE (12:00)
[2021-05-23 13:08] LABS: ANTINUCLEAR ANTIBODIES DIRECT Negative (Negative)
[2021-05-23 14:00] VITALS: BP 147/84
[2021-05-23] MEDS: IBUPROFEN 800 MG TAB PO PRN (21:02)
[2021-05-23 22:00] VITALS: BP 160/95
[2021-05-24] MEDS: PIPERACILLIN/TAZOBACTAM SOD 3.375 GM in D5W MINI-BAG PLUS 50 ML IV SCH ×2 (02:38→09:34)
[2021-05-24] MEDS: IBUPROFEN 800 MG TAB PO PRN (04:43)
[2021-05-24] MEDS: VANCOMYCIN HCL 1,000 MG, VIAL MATE ADAPTER 1 EACH in NS 250 ML IV SCH ×2 (04:43→11:00)
[2021-05-24 06:00] VITALS: BP 158/80
[2021-05-24 06:09] LABS: HEMATOCRIT 39.7 % (42.0-52.0); HEMOGLOBIN 13.5 g/dl (13.5-17.5); MEAN CORPUSCULAR HEMOGLOBIN 30.1 pg (27.0-33.0); MEAN CORPUSCULAR VOLUME 88.4 fl (80.0-96.0); PLATELET COUNT, AUTOMATED 206 10^3/uL (150-450); RED BLOOD COUNT 4.49 10^6/uL (4.30-6.10); WHITE BLOOD COUNT 18.4 10^3/uL (4.0-10.0)
[2021-05-24 06:10] LABS: BLOOD UREA NITROGEN 11 MG/DL (7-18); CALCIUM LEVEL 8.3 MG/DL (8.5-10.1); CARBON DIOXIDE LEVEL 28 MEQ/L (21-32); CHLORIDE LEVEL 103 MEQ/L (98-107); CREATININE FOR GFR 0.73 MG/DL (0.70-1.30); GLOMERULAR FILTRATION RATE > 60.0 (>60); GLUCOSE, FASTING 250 MG/DL (70-100); POTASSIUM SERUM 3.5 MEQ/L (3.5-5.1); SODIUM LEVEL 137 MEQ/L (136-145)
[2021-05-24] MEDS: ENOXAPARIN 40MG/0.4ML SYRINGE (J1650 PER 10MG) SC SCH (09:34)
[2021-05-24] MEDS: LEVEMIR (INSULIN DETEMIR) 1 UNITS/0.01ML SC SCH (09:34)
[2021-05-24] MEDS: HumaLOG INSULIN (NovoLOG) PER UNIT SC SCH (09:35)
[2021-05-24] MEDS: CitaloPRAM (CeleXA) 10 MG TABLET PO SCH (09:35)
[2021-05-24 09:50] VITALS: BP 158/100
[2021-05-24] MEDS: amLODIPine 5 MG TAB PO SCH (09:50)
[2021-05-24] MEDS ORDERED: PEN1MIS22 SC ×2 (10:33→11:54)
[2021-05-24] MEDS ORDERED: CLEO300C2 PO (10:33)
[2021-05-24] MEDS ORDERED: PROBCAP14 PO (10:33)
[2021-05-24] MEDS ORDERED: ALCOPAD25 TOP (10:33)
[2021-05-24] MEDS ORDERED: LANC30MI XX ×2 (10:33→11:54)
[2021-05-24] MEDS ORDERED: BLOOKIT21 XX (10:33)
[2021-05-24] MEDS ORDERED: BASA100I SC (10:33)
[2021-05-24] MEDS ORDERED: GLUC1TES2 XX ×2 (10:33→11:54)
--- NOTE | 2021-05-24 10:34 | DS.PDOC ---
Discharge Summary General Date of Admission May 21, 2021 at 21:05 Date of Discharge 05/24/21 Discharge Summary PROCEDURES PERFORMED DURING STAY: [None]. DISCHARGE DIAGNOSES: Cellulitis and abscess of the right neck Sepsis Uncontrolled DM SECONDARY DIAGNOSIS: Diabetes, hypertension and anxiety, obesity COMPLICATIONS/CHIEF COMPLAINT: Cellulitis, Sepsis. HOSPITAL COURSE: Patient is a 36-year-old male with past medical history of diabetes hypertension and anxiety who presented to the ED with sudden onset of a pruritic rash all over his body, tachypnea and gasping for air noted by a friend who is an EMT. In the emergency department he was found to have a wound on his neck that was swollen and concerning for possible source of infection, a white blood cell count of 31,000, and lactic acidosis. He was admitted for sepsis, cellulitis and abscess of the neck and on the back left upper chest. Cellulitis and abscess of the right neck and small furuncle left upper back Given Vanco and Zosyn in hospital MRSA PCR positive Blood negative till date and wound cultures in progress will give cefdinir and linezolid for home. Sepsis with lactic acidosis resolved Rash Resolved Type 2 diabetes Sugars uncontrolled. A1c of 11.2. continue metformin will start with long acting insulin once a day Carb consistent diet Hypertension continue home meds Anxiety Continue citalopram DISCHARGE MEDICATIONS: Please see below. ALLERGIES: Please see below. PHYSICAL EXAMINATION ON DISCHARGE: VITAL SIGNS: Please see below. General Exam: Positive: Alert, Cooperative, No Acute Distress Eye Exam: Positive: PERRLA, Conjunctiva & lids normal, EOMI; Negative: Sclera icteric ENT Exam: Positive: Atraumatic, Mucous membr. moist/pink, Pharynx Normal Neck Exam: Positive: Supple, A small furuncle at the right neck, erythema resolved Negative: JVD, thyromegaly Chest Exam: Positive: Clear to auscultation, Normal air movement Heart Exam: Positive: Rate Normal, Regular Rhythm, Normal S1, Normal S2; Negative: Murmurs, Rubs Abdomen Exam: Positive: Normal bowel sounds, Soft; Negative: Tenderness Extremity Exam: Negative: Clubbing, Cyanosis, Edema Skin Exam: Positive: Other skin issue (Left upper back with an abscess) Psych Exam: Positive: Memory Intact, Oriented x 3 LABORATORY DATA: Please see below. ACTIVITY: [As tolerated]. DIET: Carb consistent DISCHARGE PLAN: Home DISCHARGE INSTRUCTIONS: PMD in 1 week ITEMS TO FOLLOWUP ON ON OUTPATIENT: follow up final wound culture DISCHARGE CONDITION: [Stable]. TIME SPENT ON DISCHARGE: 35 minutes. Vital Signs/I&Os Vital Signs Date Time Temp Pulse Resp B/P (MAP) Pulse Ox O2 Delivery O2 Flow Rate FiO2 05/24/21 06:00 99.2 89 16 158/80 (106) 94 Room Air 05/21/21 20:15 2.0 I&O- Last 24 Hours up to 6 AM 05/24/21 05:59 Intake Total 1330 ml Output Total 1100 ml Balance 230 ml Laboratory Data Labs 24H Laboratory Tests 2 05/23/21 09:53: Vancomycin Level Trough 7.9L 05/23/21 11:27: Bedside Glucose (Misc Panel) 234H 05/23/21 17:07: Bedside Glucose (Misc Panel) 225H 05/23/21 19:55: Bedside Glucose (Misc Panel) 275H 05/24/21 05:22: Nucleated Red Blood Cells % (auto) 0.0, Anion Gap 6L, Glomerular Filtration Rate > 60.0, Calcium Level 8.3L CBC/BMP Laboratory Tests 05/24/21 05:22 FSBS Laboratory Tests Test 05/23/21 11:27 05/23/21 17:07 05/23/21 19:55 Range/Units Bedside Glucose (Misc Panel) 234 225 275 70-105 MG/DL Microbiology Microbiology 05/21/21 Wound Culture, Received Pending 05/21/21 Blood Culture - Preliminary, Resulted No Growth after 48 hours. All Specime... Discharge Medications Scheduled Amlodipine Besylate (Amlodipine Besylate) 5 Mg Tablet, 5 MG PO DAILY, (Reported) Blood Sugar Diagnostic (Advanced Glucose Test Strips) 1 Each Strip, 100 STRIP XX ASDIRECTED Citalopram Hydrobromide (Celexa) 10 Mg Tablet, 10 MG PO DAILY, (Reported) Clindamycin Hcl (Cleocin HCl) 300 Mg Capsule, 1 CAP PO TID Insulin Glargine,Hum.rec.anlog (Basaglar Kwikpen U-100) 100 Unit/1 Ml Insuln.pen, 20 UNIT SC DAILY Lactobacillus Acidophilus (Probiotic) 1 Each Capsule, 1 CAP PO TID Metformin HCl (Metformin HCl) 1,000 Mg Tablet, 1,000 MG PO BID, (Reported) Allergies Coded Allergies: cefaclor (Verified Allergy, Mild, hives, 10/04/20) Rosanne Umaña MD May 24, 2021 08:12
[2021-05-24] MEDS ORDERED: INSU100I28 SQ (11:54)
== END 2021-05-24 12:20 | disposition home or self-care (01) | DRG 720 ==
LOC: EDBD 17:37 → M ED 17:37 → EEVIPCON 21:05 → M ED INP 21:05 → ENRESERV 21:59 → M MSPAV 23:30
PROVIDERS: ADMIT Internal Medicine; ATTEND Internal Medicine Nephrology
DX: A41.9 Sepsis, unspecified organism (principal); E87.2 Acidosis; E11.65 Type 2 diabetes mellitus with hyperglycemia; L02.11 Cutaneous abscess of neck; F41.9 Anxiety disorder, unspecified; I10 Essential (primary) hypertension; R21 Rash and other nonspecific skin eruption; R65.20 Severe sepsis without septic shock; L02.222 Furuncle of back [any part, except buttock and flank]; E66.9 Obesity, unspecified; Z20.822 Contact with and (suspected) exposure to COVID-19; Z79.84 Long term (current) use of oral hypoglycemic drugs; Z79.899 Other long term (current) drug therapy; Z68.37 Body mass index [BMI] 37.0-37.9, adult

== ENCOUNTER → 2022-05-02 | Outpatient (CLI) | payer OTHER ==
[~2022-05-02] MED LIST changes: +ALCOPAD25 TOP; +AMLO1TAB24 PO; +BASA100I SC; +BLOOKIT21 XX; +CLEO300C2 PO; +GLUC1TES2 XX; +INSU100I28 SQ; +LANC30MI XX; +PEN1MIS22 SC; +PROBCAP14 PO
[2022-05-02 12:48] LABS: BASO # 0.1 10^3/uL (0.0-0.2); BASO % 0.9 % (0.0-1.0); EOS # 0.4 10^3/uL (0.0-0.5); HEMATOCRIT 43.6 % (42.0-52.0); HEMOGLOBIN 14.8 g/dl (13.5-17.5); LYMPH # 2.9 10^3/uL (1.5-5.0); MEAN CORPUSCULAR HEMOGLOBIN 31.3 pg (27.0-33.0); MEAN CORPUSCULAR HGB CONC 33.9 g/dl (32.0-36.5); MEAN CORPUSCULAR VOLUME 92.2 fl (80.0-96.0); MONO # 0.7 10^3/uL (0.0-0.8); NEUTROPHILS # 5.1 10^3/uL (1.5-8.5); NEUTROPHILS % 55.5 % (36.0-66.0); PLATELET COUNT, AUTOMATED 200 10^3/uL (150-450); RED BLOOD COUNT 4.73 10^6/uL (4.30-6.10); WHITE BLOOD COUNT 9.3 10^3/uL (4.0-10.0)
[2022-05-02 13:25] LABS: CREATININE, URINE 81.2 MG/DL; CREATININE,RANDOM URINE 81.2 MG/DL; MAU/CREAT RATIO 60.3 MCG/MG (0.0-30.0)
[2022-05-02 13:26] LABS: HEMOGLOBIN A1c 11.1 %
[2022-05-02 13:28] LABS: ALBUMIN 3.6 GM/DL (3.2-5.2); ALT/SGPT 47 U/L (12-78); BILIRUBIN,TOTAL 0.3 MG/DL (0.2-1.0); BLOOD UREA NITROGEN 20 MG/DL (7-18); CARBON DIOXIDE LEVEL 28 MEQ/L (21-32); CHLORIDE LEVEL 100 MEQ/L (98-107); CHOLESTEROL LEVEL 230 MG/DL (<200); CHOLESTEROL RISK RATIO 7.187 (<5); CREATININE FOR GFR 0.84 MG/DL (0.70-1.30); GLOMERULAR FILTRATION RATE > 60.0 (>60); GLUCOSE, FASTING 317 MG/DL (70-100); HDL CHOLESTEROL 32 MG/DL (>40); NON-HDL-C 198 MG/DL; POTASSIUM SERUM 4.7 MEQ/L (3.5-5.1); SODIUM LEVEL 133 MEQ/L (136-145); TOTAL PROTEIN 7.1 GM/DL (6.4-8.2); TRIGLYCERIDES LEVEL 689 MG/DL (<150)
== END ==
LOC: M WUC 10:37
PROVIDERS: ATTEND Family Medicine
DX: E11.65 Type 2 diabetes mellitus with hyperglycemia (principal); R74.8 Abnormal levels of other serum enzymes; D72.829 Elevated white blood cell count, unspecified

== ENCOUNTER → 2025-08-04 | Outpatient (CLI) | payer OTHER ==
[2025-08-04 16:46] LABS: BASO # 0.1 10^3/uL (0.0-0.2); BASO % 1.2 % (0.0-1.0); EOS # 0.3 10^3/uL (0.0-0.5); EOS % 3.0 % (0.0-3.0); LYMPH # 3.2 10^3/uL (1.5-5.0); LYMPH % 29.1 % (24.0-44.0); MONO # 0.7 10^3/uL (0.0-0.8); MONO % 6.6 % (2.0-8.0); NEUTROPHILS # 6.5 10^3/uL (1.5-8.5); NEUTROPHILS % 59.5 % (36.0-66.0); PLATELET COUNT, AUTOMATED 259 10^3/uL (150-450)
[2025-08-04 16:51] LABS: ALT/SGPT 22 U/L (7.0-40); AST/SGOT 14 U/L (<34); CALCIUM LEVEL 9.8 MG/DL (8.5-10.1); CARBON DIOXIDE LEVEL 28 MMOL/L (20-31); CHLORIDE LEVEL 102 MMOL/L (98-107); CHOLESTEROL LEVEL 220 MG/DL (<200); CHOLESTEROL RISK RATIO 4.63 (<5); CREATININE FOR GFR 0.74 MG/DL (0.70-1.30); GLOMERULAR FILTRATION RATE > 90.0 (>60); LDL CHOLESTEROL 128.5 MG/DL (<100); NON-HDL-C 172.5 MG/DL; POTASSIUM SERUM 5.0 MMOL/L (3.5-5.1); SODIUM LEVEL 138 MMOL/L (136-145); TRIGLYCERIDES LEVEL 220 MG/DL (<150)
[2025-08-04 16:56] LABS: ESTIMATED AVERAGE GLUCOSE 269.0 MG/DL (60-110)
[2025-08-04 17:16] LABS: CREATININE, URINE 71.9 MG/DL; MALB URINE SIEMENS 12.0 MG/L; MAU/CREAT RATIO 16.6 MCG/MG (0.0-30.0)
== END ==
LOC: M WUC 10:59
PROVIDERS: ATTEND Family Medicine
DX: Z00.00 Encounter for general adult medical examination without abnormal findings (principal); R05.3 Chronic cough; I10 Essential (primary) hypertension; E11.65 Type 2 diabetes mellitus with hyperglycemia